=== PATIENT | male | born 1960 | race Caucasian/White ===

== ENCOUNTER 2022-04-05 02:36 | Emergency (ER) | payer OTHER, SELFPAY ==
--- NOTE | 2022-04-05 | ECG_ITS ---
Test Reason : DIZZINESS Blood Pressure : / mmHG Vent. Rate : 073 BPM Atrial Rate : 073 BPM P-R Int : 212 ms QRS Dur : 100 ms QT Int : 400 ms P-R-T Axes : 047 -18 026 degrees QTc Int : 440 ms Sinus rhythm with 1st degree A-V block Otherwise normal ECG No previous ECGs available Referred By: Generic ED Physician Electronically Signed By:SARA SIMMS MD
--- NOTE | ~2022-04-05 | CT_ITS ---
EXAMINATION: CT HEAD WITHOUT CONTRAST CLINICAL INFORMATION: Dizziness COMPARISON: None TECHNIQUE: Contiguous axial imaging was performed from the skull base to vertex without intravenous administration of contrast. This CT examination was performed using dose optimization techniques as appropriate, variously including the following: *Automated exposure control *Adjustment of mA and/or kV according to patient size (this includes techniques or standardized protocols for targeted exams where dose is matched to indication/reason for exam; i.e. extremities or head) *Use of iterative reconstruction technique DLP: 766 mGy-cm FINDINGS: There is no evidence of acute intracranial hemorrhage or territorial infarction. No abnormal mass effect or midline shift is seen. Butts to white matter differentiation is well preserved. No extra-axial fluid collections are identified. The ventricles are normal in size. There is no abnormal attenuation within the brain parenchyma. The osseous structures and soft tissues are normal. Scattered secretions throughout the ethmoid air cells. Remaining sinuses are clear. CT/CT head/brain wo con IMPRESSION: No acute intracranial pathology.
[2022-04-05 02:38] VITALS: BP 158/100; PULSE 92
[2022-04-05 02:43] VITALS: BP 180/88; PULSE 82; RESP 20; O2SAT 97; BMI 31.7
[2022-04-05 02:59] VITALS: BP 158/85; PULSE 67; RESP 14; TEMP 36.6; O2SAT 99
[2022-04-05 03:01] LABS: MANUAL DIFF FLAG NO
[2022-04-05 03:02] LABS: Basophils Percent Auto 0.4 % (0-2); Eosinophils Absolute Auto 0.3 X10*3/uL (0.0-0.4); Eosinophils Percent Auto 4.4 % (0-4); Hemoglobin 13.5 g/dl (14.0-18.0); Imm Gran Abs Auto 0.09 X10*3/uL (0.00-0.03); Imm Gran Pct Auto 1.3 % (0.0-0.4); Lymphocytes Absolute Auto 1.5 X10*3/uL (1.2-4.9); Lymphocytes Percent Auto 22.4 % (20-40); Mean Corpuscular HGB Conc 34.6 g/dl (31.0-36.0); Mean Corpuscular Hemoglobin 32.1 pg (27.0-33.0); Mean Corpuscular Volume 92.9 fL (80.0-98.0); Mean Platelet Volume 10.6 fL (9.4-12.4); Monocytes Absolute Auto 0.4 X10*3/uL (0.1-1.2); Monocytes Percent Auto 6.4 % (2-11); Neutrophils Absolute Auto 4.4 x10*3/uL (2.0-8.3); Neutrophils Percent Auto 65.1 % (45-73); Platelet Count 223 X10*3/uL (160-400); Red Cell Distribution Width 12.1 % (11.0-16.0); White Blood Count 6.8 X10*3/uL (4.8-10.8)
[2022-04-05 03:16] LABS: COVID-19 Test Negative (Negative)
[2022-04-05 03:21] LABS: Troponin-I High Sensitivity < 3.5 ng/L (<3.5-35.0)
[2022-04-05 03:23] LABS: Alanine Aminotransferase 30 U/L (0-40); Albumin Level 4.4 g/dL (3.5-5.0); Alkaline Phosphatase 72 U/L (39-117); Anion Gap 15 (12-20); Aspartate Amino Transferase 21 U/L (5-37); Bilirubin Direct 0.2 mg/dL (0.0-0.5); Bilirubin Total 0.6 mg/dL (0.0-1.0); Blood Urea Nitrogen 11 mg/dL (9-16); Calcium 9.3 mg/dL (8.4-10.2); Carbon Dioxide 27 mmol/L (22-29); Chloride 99 mmol/L (96-108); Creatinine Clr Calc Pharmacy 106.5; Estimated Glomerular Filt Rate > 60; Glucose Random 167 mg/dL (60-115); Lipase 18 U/L (8-78); Potassium 3.9 mmol/L (3.3-5.1); Sodium 137 mmol/L (135-145); Total Protein 7.2 g/dL (6.5-8.0)
--- NOTE | 2022-04-05 03:30 | ED_ITS ---
HPI - Dizziness General Chief Complaint: Dizziness Stated Complaint: nausea vomiting and dizziness Time Seen by Provider: 04/05/22 02:59 Source: patient and EMS Mode of arrival: EMS Limitations: no limitations History of Present Illness HPI Narrative: 61-year-old male came in for evaluation of dizziness and vomiting. symptoms started about 02:00 after patient got up from sleeping going to the bathroom when he felt dizziness and room spinning around him followed by feeling nauseous and his start to vomit, patient declined any headache, no weakness, no numbness, no ear pain, no hearing loss. Dizziness / spinning is worsening with changing position or quickly turning his head from side to side. Patient had similar symptoms about 2 years ago had negative workup and complete resolution of his dizziness until today. No fever, no chills, no recent sickness, no exposure to a sick contact. No CP, no SOB. Related Data Home Medications Medication Instructions Recorded Confirmed ibuprofen 200 mg tablet 400 mg PO Q8H 08/11/20 08/11/20 Previous Rx's Medication Instructions Recorded diclofenac sodium 75 mg 75 mg PO BID PRN for pain #60 tabs 02/25/21 tablet,delayed release Allergies Allergy/AdvReac Type Severity Reaction Status Date / Time Fish Containing Products Allergy Unknown ANGIOEDEMA Verified 04/05/22 02:44 Review of Systems Review of Systems: All other systems are reviewed and are negative Constitutional: Reports as per HPI and Reports no additional constitutional complaints Eyes: Reports as per HPI and Reports no additional eye complaints Reports system reviewed and no additional complaints, except as documented Cardiovascular: Reports as per HPI and Reports no additional cardiovascular complaints Respiratory: Reports as per HPI and Reports no additional respiratory complaints Gastrointestinal: Reports as per HPI and Reports no additional gastrointestinal complaints Genitourinary: Reports no additional female genitourinary complaints Musculoskeletal: Reports no additional musculoskeletal complaints Skin/Breast: Reports system reviewed and no additional complaints, except as docu Psychiatric: Reports no additional psychiatric complaints Endocrine: Reports no additional endocrine complaints Hematologic/Lymphatic: Reports no additional hematologic/lymphatic complaints Allergic/Immunologic: Reports no additional allergic/immunologic complaints Reports system reviewed and no additional complaints, except as documented and Reports Abnormal speech present [facility] Past Medical History Surgical History S/P arthroscopic surgery of left knee Family History Family History Father Cancer Mother No problems noted. Social History Social History Alcohol intake: current Alcohol intake frequency: a few times a month Alcohol type: beer Physical Exam Vital Signs: Vital Signs: Last Vital Signs Temp 96.9 F 04/05/22 05:14 Pulse 83 04/05/22 05:14 Resp 15 04/05/22 05:14 BP 162/79 H 04/05/22 05:14 Pulse Ox 99 04/05/22 05:14 O2 Del Method 04/05/22 05:14 BMI result Body Mass Index 31.7 vital signs have been reviewed as appeared to be correct. Blood pressure normal. Heart rate normal. Respiration rate normal. Temperature normal. Oxygen saturation normal. Appearance: Alert. Oriented X3. No acute distress. Head: Normal external exam. Normocephalic. Atraumatic. No Roth signs noted. No raccoon eyes noted Eyes: PERRLA. EOMI. Conjunctiva and sclera normal. Eyelids normal. ENT: TM's Normal. Pharynx normal. Uvula midline. Moist mucous membranes. No trismus noted. No drooling noted. No muffled voice noted. Neck: Normal inspection. Neck supple. FROM. No adenopathy. Thyroid Normal. No meningeal signs. No neck mass noted. CVS: Normal heart rate and rhythm. Heart sound normal. No murmurs noted. Pulses normal throughout. Respiratory: No respiratory distress. Painless inspiration. Breath sounds normal. No wheezes/rales/rhonchi noted. Chest nontender. No accessory muscle usage noted or decreased air movement noted. Abdomen: Soft and nontender. Bowel sounds normal in all 4 quadrants. No distention noted. No organomegaly noted. No visible injury noted. Back: No CVA tenderness. Full range of motion noted. Skin: Skin warm and dry. Normal skin color. Normal skin turgor. No rashes/lesions/lacerations noted. Extremities: No lower extremity edema. Extremities exhibit normal range of motion. Extremities nontender. Neuro: Oriented X 3. Cranial nerve exam: II-XII are grossly intact No motor deficit. No sensory deficit. Reflexes normal. NIH Stroke Scale Internal: Initial- Upon Arrival Level of Consciousness: Alert Level of Consciousness Questions: Answers both questions correctly Level of Consciousness Commands: Performs both tasks correctly Best Gaze: Normal Visual: No visual loss Facial Palsy: Normal Motor Arm (Right): No drift Motor Arm (Left): No drift Motor Leg (Right): No drift Motor Leg (Left): No drift Limb Ataxia: Absent Sensory: Normal Best Language: No aphasia Dysarthia: Normal Extinction and Inattention: No abnormality Score: 0 Course Course Course Narrative: 61-year-old male came in for dizziness with nausea and vomiting otherwise unremarkable neuro exam with NIH score of 0, significant improvement of patient's symptoms after received IV hydration and oral hydration with Zofran and meclizine. patient's repeat neuro exam is unremarkable, in particular c erebellar exam is intact able to ambulate with steady gait, no [id number] dysmetria. Will discharge the patient to follow-up with PCP. [facility] - Dizziness Lab Data Attestation: I reviewed the patient's lab results. Result diagrams: 04/05/22 02:57 04/05/22 02:57 Labs: Lab Results 04/05/22 04/05/22 04/05/22 Range/Units 02:52 02:57 02:57 WBC 6.8 (4.8-10.8) X10*3/uL RBC 4.20 L (4.60-5.80) X10*6/uL Hgb 13.5 L (14.0-18.0) g/dl Hct 39.0 L (42.0-52.0) % MCV 92.9 (80.0-98.0) fL MCH 32.1 (27.0-33.0) pg MCHC 34.6 (31.0-36.0) g/dl RDW 12.1 (11.0-16.0) % Plt Count 223 (160-400) X10*3/uL MPV 10.6 (9.4-12.4) fL Immature Gran % (Auto) 1.3 H (0.0-0.4) % Neut % (Auto) 65.1 (45-73) % Lymph % (Auto) 22.4 (20-40) % [place] % (Auto) 6.4 (2-11) % Eos % (Auto) 4.4 H (0-4) % Baso % (Auto) 0.4 (0-2) % Lymph # (Auto) 1.5 (1.2-4.9) X10*3/uL [place] # (Auto) 0.4 (0.1-1.2) X10*3/uL Eos # (Auto) 0.3 (0.0-0.4) X10*3/uL Baso # (Auto) 0.0 (0.0-0.2) X10*3/uL Abs Immat Gran (auto) 0.09 H (0.00-0.03) X10*3/uL Absolute Neuts (auto) 4.4 (2.0-8.3) x10*3/uL Absolute Nucleated RBC 0.000 (0.0-0.012) X10*3/uL Nucleated RBC % (auto) 0.0 (0.0-0.2) /100WBC Sodium 137 (135-145) mmol/L Potassium 3.9 (3.3-5.1) mmol/L Chloride 99 (96-108) mmol/L Carbon Dioxide 27 (22-29) mmol/L Anion Gap 15 (12-20) BUN 11 (9-16) mg/dL Creatinine 0.94 (0.5-1.4) mg/dL Estim Creat Clear Calc 106.5 Estimated GFR > 60 Random Glucose 167 H (60-115) mg/dL Calcium 9.3 (8.4-10.2) mg/dL Total Bilirubin 0.6 (0.0-1.0) mg/dL Direct Bilirubin 0.2 (0.0-0.5) mg/dL AST 21 (5-37) U/L ALT 30 (0-40) U/L Alkaline Phosphatase 72 (39-117) U/L Troponin I High Sens (<3.5-35.0) ng/L Total Protein 7.2 (6.5-8.0) g/dL Albumin 4.4 (3.5-5.0) g/dL Lipase 18 (8-78) U/L Urine Color Urine Appearance Urine pH (5.0-8.0) Ur Specific [place] (1.005-1.025) Urine Protein (NEG-TRACE) MG/DL Urine Glucose (UA) (NEG) MG/DL Urine Ketones (NEG) MG/DL Urine Blood (NEG) Urine Nitrite (NEG) Ur Leukocyte Esterase (NEG) COVID-19 ([facility]) Negative (Negative) COVID-19 Clin Com See Note 04/05/22 04/05/22 Range/Units 02:57 05:44 WBC (4.8-10.8) X10*3/uL RBC (4.60-5.80) X10*6/uL Hgb (14.0-18.0) g/dl Hct (42.0-52.0) % MCV (80.0-98.0) fL MCH (27.0-33.0) pg MCHC (31.0-36.0) g/dl RDW (11.0-16.0) % Plt Count (160-400) X10*3/uL MPV (9.4-12.4) fL Immature Gran % (Auto) (0.0-0.4) % Neut % (Auto) (45-73) % Lymph % (Auto) (20-40) % [place] % (Auto) (2-11) % Eos % (Auto) (0-4) % Baso % (Auto) (0-2) % Lymph # (Auto) (1.2-4.9) X10*3/uL [place] # (Auto) (0.1-1.2) X10*3/uL Eos # (Auto) (0.0-0.4) X10*3/uL Baso # (Auto) (0.0-0.2) X10*3/uL Abs Immat Gran (auto) (0.00-0.03) X10*3/uL Absolute Neuts (auto) (2.0-8.3) x10*3/uL Absolute Nucleated RBC (0.0-0.012) X10*3/uL Nucleated RBC % (auto) (0.0-0.2) /100WBC Sodium (135-145) mmol/L Potassium (3.3-5.1) mmol/L Chloride (96-108) mmol/L Carbon Dioxide (22-29) mmol/L Anion Gap (12-20) BUN (9-16) mg/dL Creatinine (0.5-1.4) mg/dL Estim Creat Clear Calc Estimated GFR Random Glucose (60-115) mg/dL Calcium (8.4-10.2) mg/dL Total Bilirubin (0.0-1.0) mg/dL Direct Bilirubin (0.0-0.5) mg/dL AST (5-37) U/L ALT (0-40) U/L Alkaline Phosphatase (39-117) U/L Troponin I High Sens < 3.5 (<3.5-35.0) ng/L Total Protein (6.5-8.0) g/dL Albumin (3.5-5.0) g/dL Lipase (8-78) U/L Urine Color YELLOW Urine Appearance CLEAR Urine pH 7.0 (5.0-8.0) Ur Specific [place] 1.015 (1.005-1.025) Urine Protein NEG (NEG-TRACE) MG/DL Urine Glucose (UA) NEG (NEG) MG/DL Urine Ketones NEG (NEG) MG/DL Urine Blood NEG (NEG) Urine Nitrite NEG (NEG) Ur Leukocyte Esterase NEG (NEG) COVID-19 ([facility]) (Negative) COVID-19 Clin Com Imaging Data CT scan - head: Attestation: I personally reviewed and interpreted this imaging study as follows: Radiologist's impression: No acute intracranial pathology. Discharge Plan Discharge Clinical Impression: Benign paroxysmal positional vertigo Patient Disposition: Home, Self-Care Instructions: Benign Paroxysmal Positional Vertigo (ED) Prescriptions: No Action diclofenac sodium 75 mg tablet,delayed release (DR/EC) 75 mg PO BID PRN (Reason: for pain) Qty: 60 2RF ibuprofen 200 mg tablet 400 mg PO Q8H Referrals: Po,Osmani Vizcaino MD [Primary Care Provider] -
[2022-04-05] MEDS: Meclizine HCl 25 MG TABLET PO (03:48)
[2022-04-05] MEDS: ondansetron HCL 4 MG/2 ML VIAL IVPUSH (03:48)
[2022-04-05] MEDS: 0.9 % Sodium Chloride 1,000 ML 999 ML IV (03:48)
[2022-04-05 03:54] VITALS: BP 163/87; PULSE 68; RESP 16; TEMP 36.7; O2SAT 97
[2022-04-05 05:14] VITALS: BP 162/79; PULSE 83; RESP 15; TEMP 36.1; O2SAT 99
[2022-04-05 05:58] LABS: Appearance Urine CLEAR; Color Urine YELLOW; Glucose Urine UA NEG (NEG); Leukocyte Esterase Urine NEG (NEG); Nitrite Urine NEG (NEG); Specific Gravity - Urine 1.015 (1.005-1.025); Urine Blood NEG (NEG); Urine Ketones NEG (NEG); Urine Protein NEG (NEG-TRACE)
[2022-04-05 06:40] VITALS: BP 141/74; PULSE 75; RESP 14; TEMP 36.3; O2SAT 98
== END 2022-04-05 06:52 | disposition home or self-care (01) ==
PROVIDERS: Emergency Provider Emergency Medicine; PCP Internal Medicine
DX: H81.10 Benign paroxysmal vertigo, unspecified ear (principal); R11.2 Nausea with vomiting, unspecified; Z20.822 Contact with and (suspected) exposure to COVID-19; Z79.899 Other long term (current) drug therapy
CPT/HCPCS: 36415; 70450; 80048; 80076; 81003; 83690; 84484; 85025; 87635; 93005; 96361; 96374; 99284; 99285; J2405

== ENCOUNTER 2022-06-22 05:58 | Outpatient (REF) | payer OTHER, SELFPAY ==
[2022-06-22 07:33] LABS: Hematocrit 42.3 % (42.0-52.0); Hemoglobin 13.9 g/dl (14.0-18.0); Mean Corpuscular HGB Conc 32.9 g/dl (31.0-36.0); Mean Corpuscular Hemoglobin 30.9 pg (27.0-33.0); Mean Platelet Volume 11.7 fL (9.4-12.4); Platelet Count 192 X10*3/uL (160-400); Red Cell Distribution Width 12.4 % (11.0-16.0); White Blood Count 5.2 X10*3/uL (4.8-10.8)
[2022-06-22 07:50] LABS: Estimated Average Glucose 111 mg/dL; Hemoglobin A1c % 5.5 %
[2022-06-22 07:58] LABS: Appearance Urine Clear; Color Urine Yellow; Glucose Urine UA Negative (Negative); Leukocyte Esterase Urine Negative (Negative); Nitrite Urine Negative (Negative); Urine Blood Negative (Negative); Urine Ketones Negative (Negative); Urine Protein Negative (Neg-Trace)
[2022-06-22 08:02] LABS: Alanine Aminotransferase 30 U/L (0-40); Albumin Level 4.5 g/dL (3.5-5.0); Alkaline Phosphatase 73 U/L (39-117); Anion Gap 16 (12-20); Aspartate Amino Transferase 21 U/L (5-37); Bilirubin Direct 0.4 mg/dL (0.0-0.5); Bilirubin Total 1.3 mg/dL (0.0-1.0); Blood Urea Nitrogen 13 mg/dL (9-16); C Reactive Protein 0.06 mg/dL (< or = 0.50); Calcium 9.7 mg/dL (8.4-10.2); Carbon Dioxide 28 mmol/L (22-29); Chloride 103 mmol/L (96-108); Cholesterol 211 mg/dL; Estimated Glomerular Filt Rate > 60; Glucose Random 112 mg/dL (60-115); HDL Cholesterol 53 mg/dL; LDL Cholesterol Calculated 146 mg/dl; Potassium 4.7 mmol/L (3.3-5.1); Sodium 142 mmol/L (135-145); Total Protein 7.1 g/dL (6.5-8.0); Triglycerides 63 mg/dL
[2022-06-22 08:26] LABS: Prostate Specific Antigen Scr 0.42 ng/mL (<0.05-4.0); Thyroid Stimulating Hormone 0.77 uIU/mL (0.32-4.0)
[2022-06-22 08:46] LABS: Erythrocyte Sedimentation Rate 7 MM/HR (0-15)
[2022-06-24 05:46] LABS: Lyme Abs Screen <0.90 index
== END 2022-06-22 05:59 | disposition home or self-care (01) ==
LOC: HO.LAB 05:58
PROVIDERS: PCP Internal Medicine; Visit Provider Internal Medicine
DX: M79.10 Myalgia, unspecified site (principal); Z12.5 Encounter for screening for malignant neoplasm of prostate
CPT/HCPCS: 36415; 80048; 80061; 80076; 81003; 82550; 83036; 84153; 84443; 85027; 85652; 86140; 86617; 86618

== ENCOUNTER 2023-03-15 07:19 | Outpatient (AMB) | payer OTHER, SELFPAY ==
[2023-03-15 07:26] VITALS: BP 140/82; PULSE 78; O2SAT 97; BMI 34.7
--- NOTE | 2023-03-15 07:26 | A.OFFPC_ITS ---
Vital Signs 03/15/23 07:26 Height 6 ft Weight 256 lb BMI 34.7 BP 140/82 H Blood Pressure Location Lt brachial Position Sitting Pulse 78 Pulse Source Pulse Oximeter Pulse Oximetry (%) 97 Oxygen Delivery Method Room Air Intake Visit Reasons: Annual PE Allergies No Known Allergies Allergy (Verified 03/15/23 07:26) Tobacco use date assessed: 11/10/22 Dental Screening Dental Screen Date: 03/15/23 Did you have a dental visit in the last 12 months?: No Did you have a dental problem in the last 6 months where you did not have access to dental care?: No Was dental information given to patient?: Patient has dentist HPI HPI Comments History of Present Illness Details 62-year-old male past medical history significant for osteoarthritis of left knee and myalgias. Patient last seen in November presents today for physical exam. Patient s/p bilateral knee replacements RT knee done 12/31/22. Patient bloodpresure elevated in office today. Patient states monitors b/p at home and typically runs 130/70. Colonoscopy: Unsure when last colonoscopy was completed or where he had it done, likely 10 years ago. Referral entered for colonoscopy screening. Eye exam: Recommended PSA: 0.42 06[facility] Surgical History History of knee replacement S/P arthroscopic surgery of left knee Family History Father Cancer Mother No problems noted. Social History (Updated 03/15/23 @ 07:38 by PACHECO Bee) Housing: House Alcohol intake: current Alcohol intake frequency: a few times a week Alcohol type: beer Patient Tobacco Use Status: Never used Tobacco e-Cigarette/Vaping Use: Never Used Second Hand Smoke Exposure: No service: No Current occupational status: employed Current occupation: [employer] Cognitive needs: No Hearing needs: No Vision needs: No Questionnaire PHQ-9 Over the last 2 weeks, how often have you been bothered by any of the following problems? 1. Little interest or pleasure in doing things: not at all 2. Feeling down, depressed, or hopeless: not at all 3. Trouble falling or staying asleep, or sleeping too much: not at all 4. Feeling tired or having little energy: not at all 5. Poor appetite or overeating: not at all 6. Feeling bad about yourself - or that you are a failure or have let yourself or your family down: not at all 7. Trouble concentrating on things, such as reading the newspaper or watching t elevision: not at all 8. Moving or speaking so slowly that other people could have noticed. Or the opposite - being so fidgety or restless that you have been moving around a lot more than usual: not at all 9. Thoughts that you would be better off or of hurting yourself in some way: not at all Total score: 0 Depression Screening Interpretation: Negative 15795 - PHQ-9 Billing: Yes Source: Developed by Drs. Willis Coelho, Regine Mcqueen, Marcin Kimbrough and colleagues, with an educational denita from [employer]. Thrive Questionnaire Date Thrive assessed: 11/10/22 AUDIT C Alcohol Use Questionnaire (AUDIT-C) 1. How often do you have a drink containing alcohol?: Monthly or less 2. How many drinks containing alcohol do you have on a typical day when you are drinking?: 1 or 2 Total Score: 1 Score Reviewed/Action Taken: No LORETO-7 AMB Questionnaire LORETO-7 Date LORETO - 7 assessed: 11/10/22 Source: Developed by Drs. Willis Coelho, Regine Mcqueen, Marcin Kimbrough and colleagues, with an educational denita from [employer]. Review of Systems Const Denies chills, Denies fatigue, Denies fever(s) and Denies poor appetite Eyes Denies no additional complaints ENT Reports Normal hearing present Card Denies chest pain, Denies syncope, Denies rapid heart rate and Denies dyspnea Resp Denies cough and Denies dyspnea GI Denies change in stool character, Denies constipation, Denies diarrhea, Denies nausea and Denies vomiting Denies dysuria, Denies urinary frequency and Denies urinary urgency Neuro Reports Normal hearing present, Denies confusion and Denies syncope Psych Denies confusion Endo Denies fatigue Physical exam (Primary Care) Vital Signs: Last Vital Signs Pulse 78 03/15/23 07:26 BP 140/82 H 03/15/23 07:26 Pulse Ox 97 03/15/23 07:26 Oxygen Delivery Method Room Air 03/15/23 07:26 BMI result Body Mass Index 34.7 Tobacco/Smoking Status: Tobacco use Status Tobacco use date assessed 11/10/22 03/15/23 07:31 Patient Tobacco Use Status Never used Tobacco 03/15/23 07:31 e-Cigarette/Vaping Use Never Used 03/15/23 07:31 PHQ-9: PHQ-9 Score PHQ-9: Total score 0 03/15/23 07:31 Depression Screening Interpretation: Negative Thrive Assessment: Date of Thrive Assessment Date Thrive assessed 11/10/22 03/15/23 07:31 Const General: No confusion Orientation/consciousness: No confusion HENMT Head: Yes normocephalic and Yes atraumatic Ears: external ears normal and TM's normal bilaterally General nose exam: Normal external nose present and Normal nasal mucous membranes and turbinates present Face and sinus: Yes normal facial exam and Yes sinuses nontender Mouth: moist mucous membranes Throat: Yes tonsils normal Eyes Conjunctivae: conjunctivae normal Sclerae: sclerae normal Pupils: Equal, round and reactive pupils present and Pupils normal by confrontation EOM: EOMs intact bilaterally Direct Ophthalmoscopy: normal light reflex Neck Neck: Yes no lymphadenopathy and Yes supple Thyroid: Thyroid normal Chest Chest palpation & inspection: normal inspection of the chest Resp Effort & Inspection: normal respiratory effort Auscultation: clear to auscultation bilaterally, no crackles, no rhonchi and no wheezes Cardio Rate: regular rate Rhythm: regular rhythm Peripheral pulses: radial pulses present and dorsalis pedis present GI Inspection: Yes normal to inspection Palpation (GI): Soft to palpation, nontender and No hepatosplenomegaly present Auscultation: normoactive bowel sounds Skin General skin exam: no rashes or lesions noted Neuro General: No confusion Cranial nerves: Yes Equal, round and reactive pupils present and Yes Normal hearing present Cognition (Neuro): normal cognition Gait exam (Neuro): Normal gait present Motor exam (neuro): 5/5 motor strength present throughout Deep tendon reflexes (DTR's): Right brachioradialis reflex intensity grade: 2+ and Left brachioradialis reflex intensity grade: 2+ Extrem General: No edema Assessment and Plan Assessment & Plan (1) Physical exam, annual: Code(s): Z00.00 - Encounter for general adult medical examination without abnormal fin dings Plan: Follow up in 1 year for physical exam (2) Borderline hyperlipidemia: Code(s): E78.5 - Hyperlipidemia, unspecified Plan: Fasting lipid panel ordered. Avoid fried foods, chicken skin, eggs, butter,margarine, pastries and? red meat. (3) Elevated blood pressure reading in office without diagnosis of hypertension: Code(s): R03.0 - Elevated blood-pressure reading, without diagnosis of hypertension Plan: Patient advised to follow low salt diet and excercise. Patient advised to check blood pressure at home a doctor soon 3-5 minutes and keep a log and notify PCP with any elevated blood pressures. Plan Follow up in 3 months Orders: Orders Comprehensive [place]. Panel Fast Today E78.5 - Hyperlipidemia, unspecified Lipid Panel Today Z13.220 - Encounter for screening for lipoid disorders PSA,Total (Free>4and<10) Today Z12.5 - Encounter for screening for malignant neoplasm of prostate TSH reflex Free T4 Today Z13.29 - Encounter for screening for other suspected endocrine disorder Complete Blood Count Auto Diff Today Z13.0 - Encounter for screening for diseases of the blood and blood-forming organs and certain disorders involving the immune mechanism Referrals Gastroenterology Referral Z12.11 - Encounter for screening for malignant neoplasm of colon Coding Level of Care Code Est Pt Prev Care 40-64y(55439) Diagnoses Physical exam, annual Z00.00 Borderline hyperlipidemia E78.5 Elevated blood pressure reading in office without diagnosis of hypertension R03.0
== END 2023-03-15 07:57 | disposition home or self-care (01) ==
PROVIDERS: PCP Internal Medicine; Visit Provider Nurse Practitioner Family
DX: Z00.00 Encounter for general adult medical examination without abnormal findings (principal); E78.5 Hyperlipidemia, unspecified; R03.0 Elevated blood-pressure reading, without diagnosis of hypertension
CPT/HCPCS: 99396

== ENCOUNTER 2023-06-26 13:56 | Outpatient (AMB) | payer OTHER, SELFPAY ==
--- NOTE | 2023-06-26 14:01 | A.OFFVIS_ITS ---
Intake Vital Signs 06/26/23 14:15 Height 6 ft Weight 262 lb 5.601 oz BMI 35.6 BP 163/87 H Blood Pressure Location Rt brachial Position Sitting Pulse 98 Pulse Source Pulse Oximeter Pulse Oximetry (%) 98 Oxygen Delivery Method Room Air Intake Visit Reasons: Colonoscopy Screening Intake Note: Pt presents to the office today for a colonoscopy screening. Pt states he has no concerns at the moment and denies any GI upsets. Allergies No Known Allergies Allergy (Verified 07/02/23 09:38) HPI Colonoscopy Screening HPI Details 62 y/o male here for a pre procedureal m eeting to discuss a screening colonoscopy. He is referred by Rosalina Marie of [facility]. PMX Elevated blood pressure reading High cholesterol Myalgias - resolved after knee surgery Osteoarthritis of the left knee * SURGICAL HISTORY Bilateral total knee replacements Arthroscopic surgery left knee * ALLERGIES: NKDA * Replicon LABS: no recent labs - fasting ordered by PCP He says he had bloodwork at [facility] recently. TODAY'S VISIT He had a prior colonoscopy over 10 years ago that he remembers as negative. He denies any bowel or upper GI problems. There are no prior problems with anesthesia or sedation. He denies any cardiac or respiratory problems. No ID problems. There is no known FHX of crc or polyps. [facility] Surgical History History of knee replacement S/P arthroscopic surgery of left knee Family History Father Cancer Mother No problems noted. Social History Housing: House Alcohol intake: current Alcohol intake frequency: a few times a week Alcohol type: beer Patient Tobacco Use Status: Never used Tobacco e-Cigarette/Vaping Use: Never Used Second Hand Smoke Exposure: No service: No Current occupational status: employed Current occupation: [employer] Cognitive needs: No Hearing needs: No Vision needs: No Review of Systems Const Denies fatigue, Denies fever(s), Denies night sweats, Denies poor appetite and Denies weight loss ENT Reports Normal hearing present, Denies dental pain, Denies dysphagia, Denies hearing loss, Denies mouth pain, Denies odynophagia, Denies throat swelling, Denies tongue swelling and Reports other (Dentition adequate) Card Reports no additional complaints Resp Reports no additional complaints GI Denies abdominal pain, Denies melena, Denies bloating, Denies hematochezia, Denies constipation, Denies GI cramping, Denies dysphagia, Denies excessive fl atus, Denies early satiety, Denies heartburn, Denies diarrhea, Denies nausea, Denies odynophagia, Denies vomiting and Denies hematemesis Skin/Breast Denies pruritus, Denies lesions, Denies rash and Denies jaundice Neuro Reports Normal hearing present and Denies Abnormal speech present Endo Denies fatigue Aller/Immun Denies throat swelling and Denies tongue swelling Physical Exam Vital Signs: Last Vital Signs Pulse 98 06/26/23 14:15 BP 163/87 H 06/26/23 14:15 Pulse Ox 98 06/26/23 14:15 Oxygen Delivery Method Room Air 06/26/23 14:15 BMI result Body Mass Index 35.6 Const General: cooperative, no acute distress, well developed and well groomed Nutritional Appearance: well nourished and obese centrally obese Orientation/consciousness: oriented to person, oriented to place and oriented to time Limitations: No language barrier HEENT Head: Yes normocephalic and Yes atraumatic Eyes General: appearance normal, both eyes and all related structures Pupils: Equal, round and reactive pupils present Neck Neck: Yes normal visual inspection and Yes no lymphadenopathy Thyroid: Thyroid normal Resp Effort & Inspection: normal respiratory effort and able to speak in complete sentences Auscultation: clear to auscultation bilaterally Cardio Rate: regular rate Rhythm: regular rhythm Heart sounds: Normal, physiologic split S2 sound present Peripheral pulses: radial pulses present and posterior tibial pulses present GI Inspection: No distended, No Abdominal panniculus present and Yes obesity Palpation (GI): Soft to palpation, nontender, no guarding, not rigid and No hepatosplenomegaly present Percussion: Yes normal to percussion Auscultation: normal bowel sounds Rectal Exam - Male: Yes deferred Skin General skin exam: no rashes or lesions noted, turgor normal, skin not dry, no jaundice, No spider nevi and no striae Rashes: no rashes Nails: normal Neuro General: oriented to person, oriented to place and oriented to time Cranial nerves: Yes Equal, round and reactive pupils present and Yes Normal hearing present Speech: No Abnormal speech present Extrem General: Yes normal to inspection, No clubbing, No cyanosis and No edema Psych Appearance: grossly normal and well kempt Mental Status: mental status grossly normal Speech and movement: Normal speech and movement present Affect: normal affect Attitude: cooperative Thought process: Normal thought process present and not confabulating Thought content: Normal thought content present Insight: Fair insight present (Psych) Judgement: Fair judgement present (Psych) Assessment & Plan Assessment & Plan (1) Pre-op examination: Code(s): Z01.818 - Encounter for other preprocedural examination Plan: He had a prior colonoscopy over 10 years ago that he remembers as negative. He denies any bowel or upper GI problems. There are no prior problems with anesthesia or sedation. He denies any cardiac or respiratory problems. No ID problems. There is no known FHX of crc or polyps. Orders: Orders Colonoscopy - GI Use Only 06/26/23 Medications: New peg 3350-electrolytes 236-22.74-6.74 -5.86 gram (Golytely) until fecal effluent is clear; do not exceed a total volume of 2,000 mL 240 mL PO Q10M 4,000 mL 0RF 1 day Z12.11 - Encounter for screening for malignant neoplasm of colon Coding Level of Care Code New Pt Level 3 (54810) Diagnoses Pre-op examination Z01.818
[2023-06-26 14:15] VITALS: BP 163/87; PULSE 98; O2SAT 98; BMI 35.6
== END 2023-06-26 14:54 | disposition home or self-care (01) ==
PROVIDERS: PCP Internal Medicine; Visit Provider Nurse Practitioner
DX: Z01.818 Encounter for other preprocedural examination (principal)
CPT/HCPCS: 99203

== ENCOUNTER → 2023-06-26 13:56 | Outpatient (BNVA) | payer OTHER, SELFPAY | PROVIDERS: PCP Internal Medicine; Visit Provider Nurse Practitioner ==

== ENCOUNTER 2023-07-02 09:30 | Outpatient (AMB) | payer OTHER, SELFPAY ==
[2023-07-02 09:37] VITALS: BP 142/84; PULSE 84; O2SAT 96; BMI 35.4
--- NOTE | 2023-07-02 09:37 | A.OFFPC_ITS ---
Vital Signs 07/02/23 09:37 Height 6 ft Weight 261 lb BMI 35.4 BP 142/84 H Blood Pressure Location Lt brachial Position Sitting Pulse 84 Pulse Source Pulse Oximeter Pulse Oximetry (%) 96 Oxygen Delivery Method Room Air Intake Visit Reasons: Elevated B/p Allergies No Known Allergies Allergy (Verified 07/02/23 09:38) Tobacco use date assessed: 07/02/23 Dental Screening Dental Screen Date: 07/02/23 Did you have a dental visit in the last 12 months?: Yes Did you have a dental problem in the last 6 months where you did not have access to dental care?: No Was dental information given to patient?: Patient has dentist HPI Elevated B/p HPI Details 62-year-old obese male with hypercholest erolemia seen for physical in March 2023. Noted to have an elevated blood pressure. Patient has met with senior informatica etl developer for preop for colonoscopy.. Review of the notes since last year the blood pressure in the office has been high [facility] Surgical History History of knee replacement S/P arthroscopic surgery of left knee Family History Father Cancer Mother No problems noted. Social History Housing: House Alcohol intake: current Alcohol intake frequency: a few times a week Alcohol type: beer Patient Tobacco Use Status: Never used Tobacco e-Cigarette/Vaping Use: Never Used Second Hand Smoke Exposure: No service: No Current occupational status: employed Current occupation: [employer] Cognitive needs: No Hearing needs: No Vision needs: No Questionnaire Thrive Questionnaire Date Thrive assessed: 11/10/22 LORETO-7 AMB Questionnaire LORETO-7 Date LORETO - 7 assessed: 11/10/22 Source: Developed by Drs. Willis Coelho, Regine Mcqueen, Marcin Kimbrough and colleagues, with an educational denita from [employer]. Physical exam (Primary Care) Vital Signs: Last Vital Signs Pulse 84 07/02/23 09:37 BP 142/84 H 07/02/23 09:37 Pulse Ox 96 07/02/23 09:37 Oxygen Delivery Method Room Air 07/02/23 09:37 BMI result Body Mass Index 35.4 Tobacco/Smoking Status: Tobacco use Status Tobacco use date assessed 07/02/23 07/02/23 09:40 Patient Tobacco Use Status Never used Tobacco 07/02/23 09:38 e-Cigarette/Vaping Use Never Used 07/02/23 09:38 Thrive Assessment: Date of Thrive Assessment Date Thrive assessed 11/10/22 07/02/23 09:38 Const General: alert; No acute distress Eyes Conjunctivae: conjunctivae normal Resp Auscultation: clear to auscultation bilaterally Cardio Rate: regular rate Rhythm: regular rhythm GI Inspection: Yes normal to inspection Extrem General: Yes normal to inspection and No edema Office Procedures Flu Questionnaire Does the patient have a severe egg allergy?: No Does the patient have severe life threatening allergies?: No Does the patient have a fever or illness today?: No Has the patient ever had Guillain-Chambers Syndrome?: No Has the patient ever had any past reaction to a flu shot?: No Immunizations flu vacc [id number] 6mos up(PF) 60 mcg(15 mcgx4)/0.5 mL IM syringe Performing Provider: Osmani Gutierrez MD Performing Location: [facility] Administered by: UCHE Norton on 07/02/23 09:43 Dose Route Admin Location Dispensed Lot Number Expiration Date NDC Personal Lines Account Executive 0.5 mL IM Left Deltoid 0.5 mL [id number] 03/02/24 [id number] [employer] VIS Given Date VIS Provided VIS Publication Date 07/02/23 Single Vaccine 21 Eligibility Eligibility Date Funding Source Not [facility] Eligible 07/02/23 Private Assessment and Plan Assessment & Plan (1) Colon cancer screening: Code(s): Z12.11 - Encounter for screening for malignant neoplasm of colon Plan: Patient has met with the senior informatica etl developer and will be scheduled (2) Elevated blood pressure reading in office without diagnosis of hypertension: Code(s): R03.0 - Elevated blood-pressure reading, without diagnosis of hypertension Plan: Concern about the blood pressure being elevated. The patient that the blood pressure here in the office has been 140 systolic blood pressure (3) Borderline hyperlipidemia: Code(s): E78.5 - Hyperlipidemia, unspecified Plan: Avoid fried foods, chicken skin, eggs, butter margarine, pastries and meat. Be it pork or beef they have a lot of cholesterol LDL goal of less than 130 and triglyceride of less than 150 (4) Impaired glucose tolerance: Code(s): R73.02 - Impaired glucose tolerance (oral) Plan: Decrease the amount of carbohydrate intake, pasta, bread, rice and potatoes are all sugar and that is aside from all the sweet stuff, remember that fruits are good but they are Sweet also. (5) Hypertension: Code(s): I10 - Essential (primary) hypertension Plan: Continue with blood pressure medication. Decrease salt intake and exercise. Hydrochlorothiazide prescribed Orders: Orders Comprehensive [place]. Panel Fast Today E78.5 - Hyperlipidemia, unspecified TSH reflex Free T4 Today Z13.29 - Encounter for screening for other suspected endocrine disorder Vitamin B12 and Folate Today M79.10 - Myalgia, unspecified site Influenza [id number] Immunization Today Z23 - Encounter for immunization Complete Blood Count Auto Diff Today Z13.0 - Encounter for screening for diseases of the blood and blood-forming organs and certain disorders involving the immune mechanism Lipid Panel Today Z13.220 - Encounter for screening for lipoid disorders PSA,Total (Free>4and<10) Today Z12.5 - Encounter for screening for malignant neoplasm of prostate Hemoglobin A1c Today R73.02 - Impaired glucose tolerance (oral) Medications: New hydrochlorothiazide 12.5 mg PO QAM 30 tabs 5RF I10 - Essential (primary) hypertension Coding Level of Care Code Est Pt Level 4 (82955) Diagnoses Colon cancer screening Z12.11 Elevated blood pressure reading in office without diagnosis of hypertension R03.0 Borderline hyperlipidemia E78.5 Impaired glucose tolerance R73.02 Hypertension I10
== END 2023-07-02 10:11 | disposition home or self-care (01) ==
PROVIDERS: PCP Internal Medicine; Visit Provider Internal Medicine
DX: Z12.11 Encounter for screening for malignant neoplasm of colon (principal); R03.0 Elevated blood-pressure reading, without diagnosis of hypertension; E78.5 Hyperlipidemia, unspecified; R73.02 Impaired glucose tolerance (oral); I10 Essential (primary) hypertension; Z23 Encounter for immunization
CPT/HCPCS: 90471; 90686; 99214

== ENCOUNTER 2023-09-05 06:00 | Outpatient (REF) | payer OTHER, SELFPAY ==
[2023-09-05 06:15] LABS: MANUAL DIFF FLAG NO
[2023-09-05 07:55] LABS: Basophils Percent Auto 0.7 % (0-2); Eosinophils Absolute Auto 0.3 X10*3/uL (0.0-0.4); Eosinophils Percent Auto 4.5 % (0-4); Hematocrit 43.7 % (42.0-52.0); Hemoglobin 14.8 g/dl (14.0-18.0); Imm Gran Abs Auto 0.04 X10*3/uL (0.00-0.03); Imm Gran Pct Auto 0.7 % (0.0-0.4); Lymphocytes Absolute Auto 1.5 X10*3/uL (1.2-4.9); Lymphocytes Percent Auto 25.4 % (20-40); Mean Corpuscular HGB Conc 33.9 g/dl (31.0-36.0); Mean Corpuscular Hemoglobin 31.3 pg (27.0-33.0); Mean Corpuscular Volume 92.4 fL (80.0-98.0); Mean Platelet Volume 11.4 fL (9.4-12.4); Monocytes Absolute Auto 0.5 X10*3/uL (0.1-1.2); Monocytes Percent Auto 8.8 % (2-11); Neutrophils Absolute Auto 3.6 x10*3/uL (2.0-8.3); Neutrophils Percent Auto 59.9 % (45-73); Platelet Count 187 X10*3/uL (160-400); Red Blood Count 4.73 X10*6/uL (4.60-5.80); Red Cell Distribution Width 12.6 % (11.0-16.0)
[2023-09-05 08:06] LABS: Estimated Average Glucose 117 mg/dL; Hemoglobin A1c % 5.7 % (<6.0)
[2023-09-05 08:13] LABS: Alanine Aminotransferase 24 U/L (0-40); Albumin Level 4.4 g/dL (3.5-5.0); Alkaline Phosphatase 75 U/L (39-117); Anion Gap 12 (12-20); Aspartate Amino Transferase 21 U/L (5-37); Blood Urea Nitrogen 17 mg/dL (9-16); Calcium 9.3 mg/dL (8.4-10.2); Carbon Dioxide 28 mmol/L (22-29); Chloride 102 mmol/L (96-108); Cholesterol 217 mg/dL (<200); Estimated Glomerular Filt Rate > 60; Glucose Fasting 118 mg/dL (60-99); HDL Cholesterol 65 mg/dL (>40); LDL Cholesterol Calculated 124 mg/dL (<100); Potassium 3.9 mmol/L (3.3-5.1); Sodium 138 mmol/L (135-145); Total Protein 7.5 g/dL (6.5-8.0); Triglycerides 143 mg/dL (<150)
[2023-09-05 08:23] LABS: PSA,Total (Free>4and<10) 0.93 ng/mL (0.00-4.00)
[2023-09-05 08:28] LABS: TSH reflex Free T4 1.98 uIU/mL (0.32-4.0); Vitamin D 25-OH Total 30.4 ng/mL (>30)
[2023-09-05 08:36] LABS: Folate 11.2 ng/mL (> or = 4.0); Vitamin B12 506 pg/mL (200-900)
== END 2023-09-05 06:01 | disposition home or self-care (01) ==
LOC: HO.LAB 06:00
PROVIDERS: Nurse Practitioner Family; PCP Internal Medicine; Visit Provider Internal Medicine
DX: Z12.5 Encounter for screening for malignant neoplasm of prostate (principal); Z13.220 Encounter for screening for lipoid disorders; Z13.0 Encounter for screening for diseases of the blood and blood-forming organs and certain disorders involving the immune mechanism; Z13.29 Encounter for screening for other suspected endocrine disorder; E78.5 Hyperlipidemia, unspecified; M79.10 Myalgia, unspecified site; R73.02 Impaired glucose tolerance (oral)
CPT/HCPCS: 36415; 80053; 80061; 82306; 82607; 82746; 83036; 84153; 84443; 85025

== ENCOUNTER 2023-09-14 11:02 | Outpatient (AMB) | payer OTHER, SELFPAY ==
[2023-09-14 11:13] VITALS: BP 136/72; PULSE 81; O2SAT 98; BMI 35.7
--- NOTE | 2023-09-14 11:13 | MHC.PC.OV ---
Vital Signs 09/14/23 11:13 Height 6 ft Weight 263 lb BMI 35.7 BP 136/72 Blood Pressure Location Lt brachial Position Sitting Pulse 81 Pulse Source Pulse Oximeter Pulse Oximetry (%) 98 Oxygen Delivery Method Room Air Intake Visit Reasons: Hypertension Analysis Director: Not Required per policy Accompanied by: Self / Same As Patient Allergies No Known Allergies Allergy (Verified 09/14/23 11:14) Tobacco use date assessed: 09/14/23 Dental Screening Dental Screen Date: 09/14/23 Did you have a dental visit in the last 12 months?: No Did you have a dental problem in the last 6 months where you did not have access to dental care?: No Was dental information given to patient?: Patient has dentist HPI Hypertension HPI Details 62-year-old obese male with a history of hypercholesterolemia impaired glucose tolerance and hypertension last seen in June 2023. Patient is here for follow-up patient is due for colonoscopy and has a schedule in October. Blood work done [facility] Medical History (Updated 09/14/23 @ 11:42 by Osmani Gutierrez MD) Elevated blood pressure reading in office without diagnosis of hypertension Borderline hyperlipidemia Surgical History History of knee replacement S/P arthroscopic surgery of left knee Family History Father Cancer Mother No problems noted. Social History Housing: House Alcohol intake: current Alcohol intake frequency: a few times a week Alcohol type: beer Patient Tobacco Use Status: Never used Tobacco e-Cigarette/Vaping Use: Never Used Second Hand Smoke Exposure: No service: No Current occupational status: employed Current occupation: [employer] Cognitive needs: No Hearing needs: No Vision needs: No Questionnaire PHQ-9 Over the last 2 weeks, how often have you been bothered by any of the following problems? 1. Little interest or pleasure in doing things: not at all 2. Feeling down, depressed, or hopeless: not at all 3. Trouble falling or staying asleep, or sleeping too much: not at all 4. Feeling tired or having little energy: not at all 5. Poor appetite or overeating: not at all 6. Feeling bad about yourself - or that you are a failure or have let yourself or your family down: not at all 7. Trouble concentrating on things, such as reading the newspaper or watching television: not at all 8. Moving or speaking so slowly that other people could have noticed. Or the opposite - being so fidgety or restless that you have been moving around a lot more than usual: not at all 9. Thoughts that you would be better off or of hurting yourself in some way: not at all Total score: 0 Depression Screening Interpretation: Negative Depression Screening Done: Yes 34065 - PHQ-9 Billing: Yes Source: Developed by Drs. Willis Coelho, Regine Mcqueen, Marcin Kimbrough and colleagues, with an educational denita from [employer]. Thrive Questionnaire Date Thrive assessed: 09/14/23 I am a: Patient What is your living situation today?: I have a steady place to live Within the past 12 months, did the food you bought not last and you didn't have the money to get more?: Never true Within the past 12 months, did you worry whether your food would run out before you got money to buy more?: Never true Do you have trouble paying for medicines?: No Do you have trouble getting transportation to medical appointments?: No Do you have trouble paying your heating and electricity bill?: No Do you have trouble taking care of your child, family member or friend?: No Do you have trouble with day-to-day activities such as bathing, preparing meals, shopping, managing finances, etc.?: No Are you currently unemployed and looking for a job?: No Are you interested in more education?: No Please select the resources that you would like help with: None AUDIT C Alcohol Use Questionnaire (AUDIT-C) 1. How often do you have a drink containing alcohol?: Monthly or less 2. How many drinks containing alcohol do you have on a typical day when you are drinking?: 1 or 2 Total Score: 1 Score Reviewed/Action Taken: No LORETO-7 AMB Questionnaire LORETO-7 Date LORETO - 7 assessed: 09/14/23 Feeling nervous, anxious, or on edge: 0 = Not at all Not being able to stop or control worryin = Not at all Worrying too much about different things: 0 = Not at all Trouble relaxin = Not at all Being so restless that it is hard to sit still: 0 = Not at all Becoming easily annoyed or irritable: 0 = Not at all Feeling afraid as if something awful might happen: 0 = Not at all Total LORETO-7 score (0-4 normal; 5-9 mild; 10-14 moderate; 15-21 severe): 0 Source: Developed by Drs. Willis Coelho, Regine Mcqueen, Marcin Kimbrough and colleagues, with an educational denita from [employer]. Physical exam (Primary Care) Vital Signs: Last Vital Signs Pulse 81 09/14/23 11:13 BP 136/72 09/14/23 11:13 Pulse Ox 98 09/14/23 11:13 Oxygen Delivery Method Room Air 09/14/23 11:13 Care Plan Goal for BP management: 1+ swelling left lower extremity BMI result Body Mass Index 35.7 Tobacco/Smoking Status: Tobacco use Status Tobacco use date assessed 09/14/23 09/14/23 11:15 Patient Tobacco Use Status Never used Tobacco 09/14/23 11:15 e-Cigarette/Vaping Use Never Used 09/14/23 11:15 PHQ-9: PHQ-9 Score PHQ-9: Total score 0 09/14/23 11:15 Depression Screening Interpretation: Negative Thrive Assessment: Date of Thrive Assessment Date Thrive assessed 09/14/23 09/14/23 11:15 Const General: alert; No acute distress Eyes Conjunctivae: conjunctivae normal Resp Auscultation: clear to auscultation bilaterally Cardio Rate: regular rate Rhythm: regular rhythm GI Inspection: Yes normal to inspection Extrem General: Yes edema Assessment and Plan Assessment & Plan (1) Hypertension: Code(s): I10 - Essential (primary) hypertension Plan: Continue with blood pressure medication. Decrease salt intake and exercise presently on hydrochlorothiazide 12.5 mg once a day (2) Impaired glucose tolerance: Code(s): R73.02 - Impaired glucose tolerance (oral) Plan: Decrease the amount of carbohydrate intake, pasta, bread, rice and potatoes are all sugar and that is aside from all the sweet stuff, remember that fruits are good but they are Sweet also. Hemoglobin A1c is 5.7 (3) Colon cancer screening: Code(s): Z12.11 - Encounter for screening for malignant neoplasm of colon Plan: Patient has a schedule in October (4) Hypercholesterolemia: Code(s): E78.00 - Pure hypercholesterolemia, unspecified Plan: Avoid fried foods, chicken skin, eggs, butter margarine, pastries and meat. Be it pork or beef they have a lot of cholesterol LDL goal of less than 130 and triglyceride of less than 150. Repeat blood work is within normal range (5) Peripheral vascular disease: Comment: Left leg swelling September 2023 Code(s): I73.9 - Peripheral vascular disease, unspecified Plan: When sitting down elevate the legs, exercise, and support stockings Coding Level of Care Code Est Pt Level 4 (58624) Diagnoses Hypertension I10 Impaired glucose tolerance R73.02 Colon cancer screening Z12.11 Hypercholesterolemia E78.00 Peripheral vascular disease I73.9
== END 2023-09-14 11:43 | disposition home or self-care (01) ==
PROVIDERS: PCP Internal Medicine; Visit Provider Internal Medicine
DX: I73.9 Peripheral vascular disease, unspecified (principal); I10 Essential (primary) hypertension; R73.02 Impaired glucose tolerance (oral); Z12.11 Encounter for screening for malignant neoplasm of colon; E78.00 Pure hypercholesterolemia, unspecified
CPT/HCPCS: 99214

== ENCOUNTER 2023-10-24 07:45 | Day surgery (SDC) | payer OTHER, SELFPAY ==
[2023-10-19 13:39] VITALS: BMI 35.7
[2023-10-24 08:50] VITALS: BMI 34.6
[2023-10-24 08:54] VITALS: BP 163/85; PULSE 83; RESP 18; TEMP 36.3; O2SAT 97
[2023-10-24] MEDS: Lactated Ringers 1,000 ML 50 ML IVCONT (09:18)
--- NOTE | 2023-10-24 09:18 | MHC.SHP ---
Pre-Procedural Eval Section A - 24 Hr Update-Section A only Date of Service: 10/24/23 Section B - Complete if H&P > 30 days Chief Complaint: Encounter for screening for malignant neoplasm of Relevant Family History (Specify if Yes): No Present Medications: see Short Stay Collaborative assessment Medical History: Significant History (vated blood pressure reading High cholesterol Myalgias - resolved after knee surgery Osteoarthritis of the left knee ) History of Previous Operations: Relevant previous surgery/procedure and date(s) (Bilateral total knee replacements Arthroscopic surgery left knee ) Allergies: Allergies Allergy/AdvReac Type Severity Reaction Status Date / Time No Known Allergies Allergy Verified 09/14/23 11:14 Review of Systems Sugical H&P ROS: Negative: Constitution, Cardiovascular, Respiratory, Neurological, Psychiatric, Hem-Onc, Allergic/Immunologic, Gastrointestinal, Genitourinary, Musculoskeletal, Integumentary, Endocrine and Eyes/Ears/Nose/Throat Exam Surgical H&P Exam: Normal: HEENT, Normal: Heart, Normal: Lungs, Normal: Extremities, Normal: Abdomen, Normal: Skin and Normal: Neurological Plan Diagnosis/Plan: Unchanged I have reviewed the history and physical and performed a pertinent physical examination on my patient. No changes have occurred unless specified. Time Spent With Patient Time: Total time managing care of this patient today ____ minutes.
--- NOTE | 2023-10-24 09:18 | HO.ANESPROP2 ---
HPI - Anesthesia Eval Consult details Narrative: 62 yo patient for Colonoscopy PMFSH Active Problems Active Problems: All Active Problems (Updated 10/24/23 @ 09:19 by Jana Simon MD) Peripheral vascular disease (Acute) Hypercholesterolemia (Acute) Hypertension (Acute) Impaired glucose tolerance (Acute) Colon cancer screening (Acute) Pre-op examination (Acute) Myalgia (Acute) Osteoarthritis of left knee (Acute) Increased BMI 34.6 Denies KANA Past Medical History Medical History HTN (hypertension) Borderline hyperlipidemia Family History Family History Father Cancer Mother No problems noted. Family history of problems with anesthesia: No Surgical History Surgical History H/O colonoscopy History of knee replacement S/P arthroscopic surgery of left knee History of Problems with Anesthesia: No Social History Social History Housing: House Alcohol intake: current Alcohol intake frequency: a few times a week Alcohol type: beer Patient Tobacco Use Status: Never used Tobacco e-Cigarette/Vaping Use: Never Used Second Hand Smoke Exposure: No Use of substances other than those prescribed or required for medical reasons: No Are you DNR?: No Advance Directives: No Advance Directives Information Provided: Yes service: No Current occupational status: employed Current occupation: [employer] Cognitive needs: No Hearing needs: No Vision needs: No Meds Allergies Allergy/AdvReac Type Severity Reaction Status Date / Time No Known Allergies Allergy Verified 09/14/23 11:14 Exam Height,Weight and Vital Signs: Height 6 ft Weight 115.666 kg Last Vital Signs Temp 97.4 F 10/24/23 08:54 Pulse 83 10/24/23 08:54 Resp 18 10/24/23 08:54 BP 163/85 H 10/24/23 08:54 Pulse Ox 97 10/24/23 08:54 O2 Del Method Room Air 10/24/23 08:54 Airway Mallampati Class: III TM Dist: >3cm Neck ROM: Full Loose/Missing/Broken Teeth: Yes (Missing tooth top back left. Denies loose or broken teeth) Heart: RRR Lungs: CTAB Assessment and Plan Assessment Anesthesia Assessment: Anesthesia Plan Discussed and Chart Reviewed Final Anesthetic Review Family History of Problems with Anesthesia: No History of Problems with Anesthesia: No NPO: Yes ASA Class: II Final Preanesthetic Review: No Changes in Pt Med Stat, Meds/Allgs Chart Reviewed, Consent Obtained/Reviewed and Anes Risks/Benef Reviewed Patient Risk: Intermediate Procedure Risk: Low Assessment/Block/Sedation in SS: Assess/Block/Sedation-SS Anesthetic Plan Anesthetic Plan: TIVA Disposition: Standard PACU
--- NOTE | 2023-10-24 09:19 | W.PM.OPN ---
Operative Note Operative Note Date of Service: 10/24/23 Narrative: Operative Information Procedure Description: Colonoscopy Indication: screening Anesthesia: MAC COLONOSCOPY Instrument: Olympus variable stiffness ADULT scope 190L Colonoscopy Monitoring: Vital signs and clinical assessment, continuous EKG monitoring, Pulse oximetry, Carbon Dioxide monitoring and blood pressure monitoring were done throughout the procedure. Colon withdrawal time was 10 minutes. Procedure: The patient was placed in the left lateral decubitis position and pre-procedure medications were administered. After a digital rectal examination of the ano-rectum, the video colonoscope was inserted into the rectum and advanced through the colon to the cecum/TI. The colonoscope was slowly withdrawn in a retrograde panoramic fashion and the colon mucosa was carefully examined including a retroflexed view of the rectum. Findings and interventions are described below. Procedure Difficulty: easy Findings: Terminal Ileum-normal Cecum:normal Ascending Colon: patchy diverticulosis, x 1 sessile polyp 6-7 mm removed with cold snare Transverse Colon -normal Descending Colon: moderate diverticulosis Sigmoid Colon: moderate diverticulosis with some mucosal erythema and swelling Rectum: Retroflexion with small internal hemorrhoids, grade I Anorectum - normal Colon preparation: [place] Bowel Preparation Scale Right colon; 1-2 Transverse colon: 2 Left colon; 3 (0 = Unprepared colon segment with mucosa not seen due to solid stool that cannot be cleared. 1 = Portion of mucosa of the colon segment seen, but other areas of the colon segment not well seen due to staining, residual stool and/or opaque liquid. 2 = Minor amount of residual staining, small fragments of stool and/or opaque liquid, but mucosa of colon segment seen well. 3 = Entire mucosa of colon segment seen well with no residual staining, small fragments of stool or opaque liquid) Impression and Post Procedure Diagnosis: polyp internal hemorrhoids diverticular disease Plan: High fiber diet leaflet Avoid straining at stool, epsom salts and sitz bath, anusol supps or cream Repeat Colonoscopy in 5-6 years due to polyp and some areas of fair prep in right colon or earlier if clinically indicated Above findings were reviewed with the patient and relevant handouts were provided if indicated.
[2023-10-24 10:10] VITALS: BP 122/64; PULSE 76; RESP 16; TEMP 36.3; O2SAT 98
[2023-10-24 10:25] VITALS: BP 128/78; PULSE 67; RESP 18; TEMP 36.2; O2SAT 97
== END 2023-10-24 10:49 | disposition home or self-care (01) ==
PROVIDERS: PCP Internal Medicine; Visit Provider Internal Medicine Gastroenterology
PROC: 0DJD8ZZ Inspection of Lower Intestinal Tract, Via Natural or Artificial Opening Endoscopic (ICD-10-PCS; CPT 45378; principal; 2023-10-24 10:40)
DX: Z12.11 Encounter for screening for malignant neoplasm of colon (principal); D12.2 Benign neoplasm of ascending colon; K57.30 Diverticulosis of large intestine without perforation or abscess without bleeding; K64.0 First degree hemorrhoids
CPT/HCPCS: 45385; 88305; J2704

== ENCOUNTER → 2023-10-24 07:45 | Outpatient (BNV) | payer OTHER, SELFPAY | PROVIDERS: PCP Internal Medicine; Visit Provider Internal Medicine Gastroenterology | DX: Z12.11 Encounter for screening for malignant neoplasm of colon (principal); K63.5 Polyp of colon; K57.90 Diverticulosis of intestine, part unspecified, without perforation or abscess without bleeding; K64.8 Other hemorrhoids | CPT/HCPCS: 45380 ==

== ENCOUNTER 2023-11-07 08:43 | Outpatient (AMB) | payer OTHER, SELFPAY ==
[2023-11-07 08:48] VITALS: BP 136/66; PULSE 94; BMI 36.2
--- NOTE | 2023-11-07 08:48 | MHC.OFFVIS ---
Intake Vital Signs 11/07/23 08:48 Height 6 ft Weight 266 lb 12.149 oz BMI 36.2 BP 136/66 Blood Pressure Location Lt brachial Position Sitting Pulse 94 Intake Visit Reasons: s/p colon Intake Note: Patient in office in follow up s/p colonoscopy on 10/24/23. CC: Patient reports doing well and denies having any GI concerns. Distribution Operations Supervisor Required: No Accompanied by: Spouse Allergies No Known Allergies Allergy (Verified 11/07/23 08:56) HPI s/p colon HPI Details Assessment & Plan (1) Pre-op examination: Code(s): Z01.818 - Encounter for other preprocedural examination Plan: He had a prior colonoscopy over 10 years ago that he remembers as negative. He denies any bowel or upper GI problems. There are no prior problems with anesthesia or sedation. He denies any cardiac or respiratory problems. No ID problems. There is no known FHX of crc or polyps. Orders: Orders Colonoscopy - GI U se Only 06/26/23 Medications: New peg 3350-electroly cristobal 236-22.74-6.74 -5.86 gram (Golyt chelsey) until feca l effluent is baljeet r; do not exceed a total volume of 2 ,000 mL 240 mL PO Q10M 4,0 00 mL 0RF 1 day Z12.11 - Encounter for screening for malignant neoplas m of colon COLONOSCOPY 10/24/23 Findings: Terminal Ileum-normal Cecum:normal Ascending Colon: patchy diverticulosis, x 1 sessile polyp 6-7 mm removed with cold snare Transverse Colon -normal Descending Colon: moderate diverticulosis Sigmoid Colon: moderate diverticulosis with some mucosal erythema and swelling Rectum: Retroflexion with small internal hemorrhoids, grade I Anorectum - normal Impression and Post Procedure Diagnosis: polyp internal hemorrhoids diverticular disease Plan: High fiber diet leaflet Avoid straining at stool, epsom salts and sitz bath, anusol supps or cream Repeat Colonoscopy in 5-6 years due to polyp and some areas of fair prep in right colon or earlier if clinically indicated BIOPSY Received: 10/24/23 Diagnosis Colon, ascending, polyp: Sessile serrated lesion/polyp without dysplasia TODAY'S VISIT He is agreeable to a 5 year follow up. The procedure was well tolerated. The results were explained and the patient is agreeable to the follow-up interval as stated. The bowel pattern has returned to normal. Education was provided to tell any 1st degree relatives about their findings to be sure that they are screened by age 45. Educated that they will be put on a recall list when it is time for their repeat scope but should they move out of state or away from the hospital they will need to remember along with their primary to repeat the procedure in a timely fashion to avoid any adverse complications. [facility] Medical History HTN (hypertension) Borderline hyperlipidemia Surgical History H/O colonoscopy History of knee replacement S/P arthroscopic surgery of left knee Family History Father Cancer Mother No problems noted. Social History Housing: House Alcohol intake: current Alcohol intake frequency: a few times a week Alcohol type: beer Patient Tobacco Use Status: Never used Tobacco e-Cigarette/Vaping Use: Never Used Second Hand Smoke Exposure: No service: No Current occupational status: employed Current occupation: [employer] Cognitive needs: No Hearing needs: No Vision needs: No Review of Systems Const Denies fatigue, Denies fever(s), Denies night sweats, Denies poor appetite and Denies weight loss ENT Reports Normal hearing present, Denies dental pain, Denies dysphagia, Denies hearing loss, Denies mouth pain, Denies odynophagia, Denies throat swelling, Denies tongue swelling and Reports other (Dentition adequate) Card Reports no additional complaints Resp Reports no additional complaints GI Details: Denies abdominal pain, Denies melena, Denies bloating, Denies hematochezia, Denies constipation, Denies GI cramping, Denies dysphagia, Denies excessive flatus, Denies early satiety, Denies heartburn, Denies diarrhea, Denies nausea, Denies odynophagia, Denies vomiting and Denies hematemesis Skin/Breast Denies pruritus, Denies lesions, Denies rash and Denies jaundice Neuro Reports Normal hearing present and Denies Abnormal speech present Endo Denies fatigue Aller/Immun Denies throat swelling and Denies tongue swelling Physical Exam Vital Signs: Last Vital Signs Pulse 94 11/07/23 08:48 BP 136/66 11/07/23 08:48 BMI result Body Mass Index 36.2 Const General: cooperative, no acute distress, well developed and well groomed Nutritional Appearance: well nourished and obese Orientation/consciousness: oriented to person, oriented to place and oriented to time Limitations: No language barrier HEENT Head: Yes normocephalic and Yes atraumatic Eyes General: appearance normal, both eyes and all related structures Pupils: Equal, round and reactive pupils present Neck Neck: Yes normal visual inspection and Yes no lymphadenopathy Thyroid: Thyroid normal Resp Effort & Inspection: normal respiratory effort and able to speak in complete sentences Auscultation: clear to auscultation bilaterally Cardio Rate: regular rate Rhythm: regular rhythm Heart sounds: Normal, physiologic split S2 sound present Peripheral pulses: radial pulses present and posterior tibial pulses present GI Inspection: No distended, No Abdominal panniculus present and Yes obesity Palpation (GI): Soft to palpation, nontender, no guarding, not rigid and No hepatosplenomegaly present Percussion: Yes normal to percussion Auscultation: normal bowel sounds Rectal Exam - Male: Yes deferred Skin General skin exam: no rashes or lesions noted, turgor normal, skin not dry, no jaundice, No spider nevi and no striae Rashes: no rashes Nails: normal Neuro General: oriented to person, oriented to place and oriented to time Cranial nerves: Yes Equal, round and reactive pupils present and Yes Normal hearing present Speech: No Abnormal speech present Extrem General: Yes normal to inspection, No clubbing, No cyanosis and No edema Psych Appearance: grossly normal and well kempt Mental Status: mental status grossly normal Speech and movement: Normal speech and movement present Affect: normal affect Attitude: cooperative Thought process: Normal thought process present and not confabulating Thought content: Normal thought content present Insight: Good insight present (Psych) Judgement: Good judgement present (Psych) Assessment & Plan Assessment & Plan (1) Tubular adenoma of colon: Comment: 2023 SCOPE REPEAT IN 5 YEARS Code(s): D12.6 - Benign neoplasm of colon, unspecified Plan He is agreeable to a 5 year follow up. The procedure was well tolerated. The results were explained and the patient is agreeable to the follow-up interval as stated. The bowel pattern has returned to normal. Education was provided to tell any 1st degree relatives about their findings to be sure that they are screened by age 45. Educated that they will be put on a recall list when it is time for their repeat scope but should they move out of state or away from the hospital they will need to remember along with their primary to repeat the procedure in a timely fashion to avoid any adverse complications. Coding Level of Care Code Est Pt Level 3 (27793) Diagnoses Tubular adenoma of colon D12.6
== END 2023-11-07 09:01 | disposition home or self-care (01) ==
PROVIDERS: PCP Internal Medicine; Visit Provider Nurse Practitioner
DX: D12.6 Benign neoplasm of colon, unspecified (principal)
CPT/HCPCS: 99213

== ENCOUNTER → 2023-11-07 08:43 | Outpatient (BNVA) | payer OTHER, SELFPAY | PROVIDERS: PCP Internal Medicine; Visit Provider Nurse Practitioner ==

== ENCOUNTER 2024-03-17 11:13 | Outpatient (AMB) | payer OTHER, SELFPAY ==
[2024-03-17 11:27] VITALS: BP 144/82; PULSE 81; O2SAT 97; BMI 36.1
--- NOTE | 2024-03-17 11:27 | MHC.PC.OV ---
Vital Signs 03/17/24 11:27 Height 6 ft Weight 266 lb BMI 36.1 BP 144/82 H Blood Pressure Location Lt brachial Position Sitting Pulse 81 Pulse Source Pulse Oximeter Pulse Oximetry (%) 97 Oxygen Delivery Method Room Air Intake Visit Reasons: Annual exam Allergies No Known Allergies Allergy (Verified 03/17/24 11:27) Medication List - Last Reconciled 03/17/24 by Osmani Gutierrez MD [beets PO] hydrochlorothiazide 12.5 mg PO QAM Tobacco use date assessed: 09/14/23 Dental Screening Dental Screen Date: 03/17/24 Did you have a dental visit in the last 12 months?: No Did you have a dental problem in the last 6 months where you did not have access to dental care?: No Was dental information given to patient?: Patient has dentist HPI Annual exam HPI Details 63-year-old obese male with hypertension, impaired glucose tolerance hypercholesterolemia and peripheral vascular disease last seen in September 2023. Patient had colonoscopy done in October 2023. Had internal hemorrhoids and diverticular disease and has been advised to repeat colonoscopy in 5-6 years had a polyp sessile serrated lesion without dysplasia PFSH Medical History (Updated 03/17/24 @ 12:14 by Osmani Gutierrez MD) Colon cancer screening HTN (hypertension) Borderline hyperlipidemia Surgical History H/O colonoscopy History of knee replacement S/P arthroscopic surgery of left knee Family History (Updated 03/17/24 @ 12:01 by Osmani Gutierrez MD) Father Cancer Lung cancer Stomach cancer Mother Breast cancer Brother Myocardial infarct Social History (Updated 03/17/24 @ 12:03 by Osmani Gutierrez MD) Housing: House Alcohol intake: current Alcohol intake frequency: a few times a week Alcohol type: beer Comment: 3x a week 4 beers Patient Tobacco Use Status: Former Tobacco user Years Smoked: stopped 22 years old e-Cigarette/Vaping Use: Never Used Second Hand Smoke Exposure: No service: No Current occupational status: employed Current occupation: [employer] Cognitive needs: No Hearing needs: No Vision needs: Yes Questionnaire PHQ-9 Over the last 2 weeks, how often have you been bothered by any of the following problems? 1. Little interest or pleasure in doing things: not at all 2. Feeling down, depressed, or hopeless: not at all 3. Trouble falling or staying asleep, or sleeping too much: not at all 4. Feeling tired or having little energy: not at all 5. Poor appetite or overeating: not at all 6. Feeling bad about yourself - or that you are a failure or have let yourself or your family down: not at all 7. Trouble concentrating on things, such as reading the newspaper or watching television: not at all 8. Moving or speaking so slowly that other people could have noticed. Or the opposite - being so fidgety or restless that you have been moving around a lot more than usual: not at all 9. Thoughts that you would be better off or of hurting yourself in some way: not at all Total score: 0 Depression Screening Interpretation: Negative Depression Screening Done: Yes 18697 - PHQ-9 Billing: Yes Source: Developed by Drs. Willis Coelho, Regine Mcqueen, Marcin Kimbrough and colleagues, with an educational denita from [employer]. Thrive Questionnaire Date Thrive assessed: 09/14/23 AUDIT C Alcohol Use Questionnaire (AUDIT-C) 1. How often do you have a drink containing alcohol?: Monthly or less 2. How many drinks containing alcohol do you have on a typical day when you are drinking?: 1 or 2 Total Score: 1 Score Reviewed/Action Taken: No LORETO-7 AMB Questionnaire LORETO-7 Date LORETO - 7 assessed: 09/14/23 Source: Developed by Drs. Willis Coelho, Regine Mcqueen, Marcin Kimbrough and colleagues, with an educational denita from [employer]. Review of Systems Const Denies poor appetite and Denies weakness Eyes Denies no additional complaints ENT Reports Normal hearing present, Denies dizziness, Denies nasal congestion, Denies tinnitus and Denies sore throat Card Denies chest pain, Denies syncope, Denies rapid heart rate and Denies dyspnea Resp Denies cough and Denies dyspnea GI Denies change in stool character, Reports constipation, Denies diarrhea, Denies nausea and Denies vomiting Denies dysuria and Denies urinary frequency Neuro Reports Normal hearing present, Denies confusion, Denies dizziness, Denies syncope and Denies weakness Psych Denies confusion Physical exam (Primary Care) Vital Signs: Last Vital Signs Pulse 81 07/15/24 11:27 BP 144/82 H 03/17/24 11:27 Pulse Ox 97 03/17/24 11:27 Oxygen Delivery Method Room Air 03/17/24 11:27 BMI result Body Mass Index 36.1 Tobacco/Smoking Status: Tobacco use Status Tobacco use date assessed 09/14/23 03/17/24 11:31 Patient Tobacco Use Status Never used Tobacco 03/17/24 11:31 e-Cigarette/Vaping Use Never Used 03/17/24 11:31 PHQ-9: PHQ-9 Score PHQ-9: Total score 0 03/17/24 11:55 Depression Screening Interpretation: Negative Thrive Assessment: Date of Thrive Assessment Date Thrive assessed 09/14/23 03/17/24 11:31 Const General: No confusion Orientation/consciousness: No confusion HENMT Head: Yes normocephalic Ears: external ears normal and TM's normal bilaterally Face and sinus: Yes normal facial exam Mouth: moist mucous membranes Throat: Yes tonsils normal Eyes Conjunctivae: conjunctivae normal Pupils: Equal, round and reactive pupils present and Pupil accommodation reflex normal Direct Ophthalmoscopy: normal light reflex Neck Neck: No lymphadenopathy Thyroid: Thyroid normal Chest Chest palpation & inspection: normal inspection of the chest Resp Effort & Inspection: normal respiratory effort and no audible wheezes Auscultation: clear to auscultation bilaterally, no crackles, no wheezes and lung sounds not diminished Cardio Rate: regular rate Rhythm: regular rhythm Peripheral pulses: radial pulses present and dorsalis pedis present GI Palpation (GI): no masses Auscultation: normal bowel sounds and normoactive bowel sounds Rectal Exam - Male: Yes deferred Skin General skin exam: no rashes or lesions noted Rashes: no rashes Neuro General: No confusion Cranial nerves: Yes Equal, round and reactive pupils present and Yes Normal hearing present Cognition (Neuro): normal cognition Gait exam (Neuro): Normal gait present Motor exam (neuro): 5/5 motor strength present throughout Deep tendon reflexes (DTR's): Right brachioradialis reflex intensity grade: 2+, Left brachioradialis reflex intensity grade: 2+, Right patellar reflex intensity grade: 2+ and Left patellar reflex intensity grade: 2+ Extrem General: No edema Assessment and Plan Assessment & Plan (1) Annual physical exam: Code(s): Z00.00 - Encounter for general adult medical examination without abnormal findings Plan: Patient is advised to eat healthy, keep well hydrated, keep active and have adequate sleep. (2) Tubular adenoma of colon: Comment: 2023 SCOPE REPEAT IN 5 YEARS Code(s): D12.6 - Benign neoplasm of colon, unspecified Plan: Patient had colonoscopy done in October 2023 and has been advised to repeat the test in 5 years (3) Impaired glucose tolerance: Code(s): R73.02 - Impaired glucose tolerance (oral) Plan: Decrease the amount of carbohydrate intake, pasta, bread, rice and potatoes are all sugar and that is aside from all the sweet stuff, remember that fruits are good but they are Sweet also. (4) Hypertension: Code(s): I10 - Essential (primary) hypertension Plan: Continue with blood pressure medication. Decrease salt intake and exercise presently on hydrochlorothiazide 12.5 mg once a day (5) Hypercholesterolemia: Code(s): E78.00 - Pure hypercholesterolemia, unspecified Plan: Avoid fried foods, chicken skin, eggs, butter margarine, pastries and meat. Be it pork or beef they have a lot of cholesterol Rosalnia blood work LDL did come down. (6) Tinea corporis: Code(s): B35.4 - Tinea corporis Medications: New lisinopril-hydrochlorothiazide 10-12.5 mg 1 tab PO DAILY 30 tabs 3RF I10 - Essential (primary) hypertension Discontinued hydrochlorothiazide Discontinued Reason: Doctor's Order 12.5 mg PO QAM 90 tabs 1RF I10 - Essential (primary) hypertension Coding Level of Care Code Est Pt Prev Care 40-64y(44250) Diagnoses Annual physical exam Z00.00 Tubular adenoma of colon D12.6 Impaired glucose tolerance R73.02 Hypertension I10 Hypercholesterolemia E78.00 Tinea corporis B35.4
== END 2024-03-17 12:16 | disposition home or self-care (01) ==
PROVIDERS: PCP Internal Medicine; Visit Provider Internal Medicine
DX: Z00.00 Encounter for general adult medical examination without abnormal findings (principal); D12.6 Benign neoplasm of colon, unspecified; R73.02 Impaired glucose tolerance (oral); I10 Essential (primary) hypertension; E78.00 Pure hypercholesterolemia, unspecified; B35.4 Tinea corporis
CPT/HCPCS: 99396

== ENCOUNTER 2024-06-23 10:43 | Outpatient (AMB) | payer OTHER, SELFPAY ==
[2024-06-23 10:44] VITALS: BP 128/70; PULSE 79; O2SAT 98; BMI 36.3
--- NOTE | 2024-06-23 10:44 | A.OFFPC_ITS ---
Vital Signs 06/23/24 10:44 Height 6 ft Weight 268 lb BMI 36.3 BP 128/70 Blood Pressure Location Lt brachial Position Sitting Pulse 79 Pulse Source Pulse Oximeter Pulse Oximetry (%) 98 Oxygen Delivery Method Room Air Intake Visit Reasons: 3 Month F/U Day Porter Required: No Allergies No Known Allergies Allergy (Verified 06/23/24 11:09) Medication List - Last Reconciled 06/23/24 by Izabella Garcia PA-C [beets PO] lisinopril-hydrochlorothiazide 10-12.5 mg 1 tab PO DAILY Tobacco use date assessed: 09/14/23 Dental Screening Dental Screen Date: 03/17/24 HPI 3 Month F/U HPI Details 63-year-old male with past medical histo ry of hypertension, impaired glucose tolerance, hypercholesterolemia, and peripheral vascular disease last seen by Dr. Gutiererz March 2024 coming in for follow up. Patient states he is feeling generally well. He has had a dry cough for several years however in the last few months the cough has increased in frequency and intensity. There is no pattern to the coughing fits in the typically self resolve. He has no other concerns today. [facility] Medical History Colon cancer screening HTN (hypertension) Borderline hyperlipidemia Surgical History H/O colonoscopy History of knee replacement S/P arthroscopic surgery of left knee Family History Father Cancer Lung cancer Stomach cancer Mother Breast cancer Brother Myocardial infarct Social History Housing: House Alcohol intake: current Alcohol intake frequency: a few times a week Alcohol type: beer Comment: 3x a week 4 beers Patient Tobacco Use Status: Former Tobacco user Years Smoked: stopped 22 years old e-Cigarette/Vaping Use: Never Used Second Hand Smoke Exposure: No service: No Current occupational status: employed Current occupation: [employer] Cognitive needs: No Hearing needs: No Vision needs: Yes Questionnaire Thrive Questionnaire Date Thrive assessed: 09/14/23 AUDIT C Alcohol Use Questionnaire (AUDIT-C) 1. How often do you have a drink containing alcohol?: Monthly or less 2. How many drinks containing alcohol do you have on a typical day when you are drinking?: 1 or 2 3. How often do you have six or more drinks on one occasion?: Never Total Score: 1 Score Reviewed/Action Taken: No LORETO-7 AMB Questionnaire LORETO-7 Date LORETO - 7 assessed: 09/14/23 Source: Developed by Drs. Willis Coelho, Regine Mcqueen, Marcin Kimbrough and colleagues, with an educational denita from [employer]. Review of Systems Const Denies body aches, Denies chills, Denies fever(s), Denies headache(s) and Denies poor appetite Eyes Reports no additional complaints ENT Denies dizziness and Denies headache(s) Card Denies chest pain, Denies lightheadedness and Denies dyspnea Resp Reports cough, Denies hemoptysis, Denies excessive phlegm production, Denies pain with cough and Denies dyspnea GI Denies abdominal pain, Denies nausea and Denies vomiting Reports no additional complaints Musc Reports no additional complaints and Denies abnormal gait Skin/Breast Reports system reviewed and no additional complaints, except as documented Neuro Denies abnormal gait, Denies dizziness and Denies headache(s) Psych Reports no additional complaints Physical exam (Primary Care) Vital Signs: Last Vital Signs Pulse 79 06/23/24 10:44 BP 128/70 06/23/24 10:44 Pulse Ox 98 06/23/24 10:44 Oxygen Delivery Method Room Air 06/23/24 10:44 BMI result Body Mass Index 36.3 Tobacco/Smoking Status: Tobacco use Status Tobacco use date assessed 09/14/23 06/23/24 10:44 Patient Tobacco Use Status Former Tobacco user 06/23/24 10:44 e-Cigarette/Vaping Use Never Used 06/23/24 10:44 Thrive Assessment: Date of Thrive Assessment Date Thrive assessed 09/14/23 06/23/24 10:44 Const General: cooperative, healthy appearing, comfortable and no acute distress Orientation/consciousness: patient oriented x3 HENMT Head: Yes normocephalic Ears: hearing grossly normal bilaterally General nose exam: Normal external nose present Eyes General: appearance normal, both eyes and all related structures Conjunctivae: conjunctivae normal Neck Neck: Yes full ROM and Yes no lymphadenopathy Resp Effort & Inspection: normal respiratory effort Auscultation: clear to auscultation bilaterally, no crackles, no rales, no rhonchi and no wheezes Cardio Rate: regular rate Rhythm: regular rhythm Skin General skin exam: no rashes or lesions noted Neuro General: patient oriented x3 Gait exam (Neuro): Normal gait present Extrem General: Yes normal to inspection, Yes full ROM and No edema Psych Affect: normal affect Attitude: cooperative Insight: Good insight present (Psych) Judgement: Good judgement present (Psych) Coding Level of Care Code Est Pt Level 4 (67888) Diagnoses Peripheral vascular disease I73.9 Hypercholesterolemia E78.00 Hypertension I10 Impaired glucose tolerance R73.02 Cough R05.9 Assessment & Plan Assessment & Plan (1) Peripheral vascular disease: Comment: Left leg swelling September 2023 Code(s): I73.9 - Peripheral vascular disease, unspecified Category: Medical Plan: Work on good control of blood pressure, cholesterol, blood sugar. (2) Hypercholesterolemia: Code(s): E78.00 - Pure hypercholesterolemia, unspecified Category: Medical Plan: Avoid foods that are high in cholesterol such as red meat, fried foods, eggs and baked goods. Triglyceride goal of less than 150 and LDL goal of less than 100. Not currently on medical management. Ordered for updated blood work and follow up in 3 months. (3) Hypertension: Code(s): I10 - Essential (primary) hypertension Category: Medical Plan: Patient has a cough while on lisinopril-hydrochlorothiazide combo pill. Discontinue this medication at this time and replaced with losartan- hydrochlorothiazide, pill and follow up in 3 months. Avoid salt intake and encourage healthy diet and regular exercise. (4) Impaired glucose tolerance: Code(s): R73.02 - Impaired glucose tolerance (oral) Category: Medical Plan: Decrease the amount of carbohydrates such as pasta, bread, rice, and potatoes and limit the amount of sweets. Although fruits are generally healthy they should be eaten in moderation as they are still high in sugar. Hemoglobin A1c goal of less than 7%. Ordered for updated blood work. (5) Cough: Code(s): R05.9 - Cough, unspecified Category: Medical Plan: Seems to be chronic in nature however worsened since starting the lisinopril. We will discontinue lisinopril at this time and replaced with losartan for blood pressure management. Ordered for chest x-ray for further evaluation and advised patient to use [id number] antihistamines daily. Plan This note was constructed using voice recognition software. While every effort has been made to ensure accuracy and patient service specialist, still areas may have been included sometimes these areas may affect the content or meeting of the given symptoms. Total time spent caring for the patient today was 30 minutes. This includes time spent before the visit reviewing the chart, time spent during the visit, and time spent after the visit and documentation. Orders: Orders Lipid Panel 3 Months Z00.00 - Encounter for general adult medical examination without abnormal findings Hemoglobin A1c 3 Months Z00.00 - Encounter for general adult medical examination without abnormal findings XR chest 2V Today R05.9 - Cough, unspecified Medications: New losartan-hydrochlorothiazide 50-12.5 mg 1 tab PO DAILY 30 tabs 2RF Discontinued lisinopril-hydrochlorothiazide 10-12.5 mg Discontinued Reason: Patient no longer taking 1 tab PO DAILY 90 tabs 1RF I10 - Essential (primary) hypertension
== END 2024-06-23 11:18 | disposition home or self-care (01) ==
PROVIDERS: PCP Internal Medicine
DX: I73.9 Peripheral vascular disease, unspecified (principal); E78.00 Pure hypercholesterolemia, unspecified; I10 Essential (primary) hypertension; R73.02 Impaired glucose tolerance (oral); R05.9 Cough, unspecified

== ENCOUNTER → 2024-06-23 10:43 | Outpatient (BNVA) | payer OTHER, SELFPAY | PROVIDERS: PCP Internal Medicine ==

== ENCOUNTER 2024-08-08 06:01 | Outpatient (REF) | payer OTHER, SELFPAY ==
[2024-08-08 07:30] LABS: Estimated Average Glucose 114 mg/dL; Hemoglobin A1C 132.3905 umol/L; Hemoglobin A1c % 5.6 % (<6.0); Total Hemoglobin (HGBA1C) 3501.6662 umol/L
[2024-08-08 08:04] LABS: Cholesterol 183 mg/dL (<200); HDL Cholesterol 51 mg/dL (>40); LDL Cholesterol Calculated 111 mg/dL (<100); Triglycerides 107 mg/dL (<150)
== END 2024-08-08 06:02 | disposition home or self-care (01) ==
LOC: HO.LAB 06:01
PROVIDERS: PCP Internal Medicine
DX: Z00.00 Encounter for general adult medical examination without abnormal findings (principal); Z13.1 Encounter for screening for diabetes mellitus
CPT/HCPCS: 36415; 80061; 83036

== ENCOUNTER 2024-09-23 08:54 | Outpatient (AMB) | payer OTHER, SELFPAY ==
--- NOTE | 2024-09-23 08:58 | A.OFFPC_ITS ---
Vital Signs 09/23/24 09:01 Height 6 ft Weight 282 lb BMI 38.2 BP 120/64 Blood Pressure Location Lt brachial Position Sitting Pulse 80 Pulse Source Pulse Oximeter Temp 97.1 F Temp Source Skin Pulse Oximetry (%) 95 Oxygen Delivery Method Room Air Intake Visit Reasons: follow up on DM and HLD Intake Note: Patient is here to follow up on DM, HLD. Supply Chain Logistics Manager Required: No Field Property Loss Specialist: Not Required per policy Accompanied by: Self / Same As Patient Allergies No Known Allergies Allergy (Verified 09/23/24 09:01) Tobacco use date assessed: 09/23/24 Dental Screening Dental Screen Date: 09/23/24 Did you have a dental visit in the last 12 months?: No Did you have a dental problem in the last 6 months where you did not have access to dental care?: No Was dental information given to patient?: Patient has dentist HPI follow up on DM and HLD HPI Details The patient is a 63-year-old male with significant past medical history of peripheral vascular disease, hypercholesterolemia, hypertension, impaired glucose tolerance He is a patient of Dr. Gutierrez and was last seen on 06/23/2024 by Izabella, at that visit the patient blood pressure medication was changed from an Jacob to an Arb due to his complaints of chronic cough Patient is presenting today and is feeling much better and reported that his cough has subsided Reports that sometimes he feels like he has a sensation to cough but nothing happens Patient denies chest pain, shortness of breath, dizziness palpitation Instead of return in 3 months monitor blood pressure, patient requested if he could come back in six-month because he already appointment with Dr. Soriano in March. This appointment is for the patient physical. Labs were ordered and the patient was encouraged to get these done about a week prior to this appointment. SDM: The patient Blood pressure appears to be well controlled on his current treatment. The patient could follow up in 6 months per request. --Received a flu shot office today [facility] Medical History Colon cancer screening HTN (hypertension) Borderline hyperlipidemia Surgical History H/O colonoscopy History of knee replacement S/P arthroscopic surgery of left knee Family History Father Cancer Lung cancer Stomach cancer Mother Breast cancer Brother Myocardial infarct Social History Housing: House Alcohol intake: current Alcohol intake frequency: a few times a week Alcohol type: beer Comment: 3x a week 4 beers Patient Tobacco Use Status: Former Tobacco user Years Smoked: stopped 22 years old e-Cigarette/Vaping Use: Never Used Second Hand Smoke Exposure: Yes service: No Current occupational status: employed Current occupation: [employer] Cognitive needs: No Hearing needs: No Vision needs: Yes Questionnaire PHQ-9 Over the last 2 weeks, how often have you been bothered by any of the following problems? 1. Little interest or pleasure in doing things: not at all 2. Feeling down, depressed, or hopeless: not at all 3. Trouble falling or staying asleep, or sleeping too much: not at all 4. Feeling tired or having little energy: not at all 5. Poor appetite or overeating: not at all 6. Feeling bad about yourself - or that you are a failure or have let yourself or your family down: not at all 7. Trouble concentrating on things, such as reading the newspaper or watching television: not at all 8. Moving or speaking so slowly that other people could have noticed. Or the opposite - being so fidgety or restless that you have been moving around a lot more than usual: not at all 9. Thoughts that you would be better off or of hurting yourself in some way: not at all Total score: 0 Depression Screening Interpretation: Negative Depression Screening Done: Yes 91904 - PHQ-9 Billing: Yes Source: Developed by Drs. Willis Coelho, Regine Mcqueen, Marcin Kimbrough and colleagues, with an educational denita from [employer]. Thrive Questionnaire Date Thrive assessed: 09/23/24 I am a: Patient What is your living situation today?: I have a steady place to live Within the past 12 months, did the food you bought not last and you didn't have the money to get more?: Never true Within the past 12 months, did you worry whether your food would run out before you got money to buy more?: Never true Do you have trouble paying for medicines?: No Do you have trouble getting transportation to medical appointments?: No Do you have trouble paying your heating and electricity bill?: No Do you have trouble taking care of your child, family member or friend?: No Do you have trouble with day-to-day activities such as bathing, preparing meals, shopping, managing finances, etc.?: No Are you currently unemployed and looking for a job?: No Are you interested in more education?: No Please select the resources that you would like help with: None Currently or been in a relationship where the following occur: No concerns reported THRIVE Score: 0 AUDIT C Alcohol Use Questionnaire (AUDIT-C) 1. How often do you have a drink containing alcohol?: Monthly or less 2. How many drinks containing alcohol do you have on a typical day when you are drinking?: 1 or 2 Total Score: 1 LORETO-7 AMB Questionnaire LORETO-7 Date LORETO - 7 assessed: 09/23/24 Feeling nervous, anxious, or on edge: 0 = Not at all Not being able to stop or control worryin = Not at all Worrying too much about different things: 0 = Not at all Trouble relaxin = Not at all Being so restless that it is hard to sit still: 0 = Not at all Becoming easily annoyed or irritable: 0 = Not at all Feeling afraid as if something awful might happen: 0 = Not at all Total LORETO-7 score (0-4 normal; 5-9 mild; 10-14 moderate; 15-21 severe): 0 Source: Developed by Drs. Willis Coelho, Regine Mcqueen, Marcin Kimbrough and colleagues, with an educational denita from [employer]. LORETO-7 Assessment Billing LORETO-7 Assessment Tool: LORETO-7 Assessment 66908 Review of Systems Const Details: Denies chills, Denies fatigue, Denies fever(s), Denies headache(s) and Denies weakness HEENT Denies change in vision, Denies dizziness, Denies headache(s), Denies hearing loss, Denies nasal congestion, Denies sinus pain, Denies sinus pressure and Denies sore throat Card Denies chest pain, Denies lightheadedness, Denies dyspnea and Denies other (palpitations) Resp Denies cough, Denies dyspnea and Denies wheezing GI Denies abdominal pain, Denies melena, Denies hematochezia, Denies change in bowel habits, Denies dyspepsia and Denies nausea Denies hematuria and Denies dysuria Musc Denies abnormal gait, Denies myalgias, Denies arthralgias, Denies numbness and Denies tingling Skin/Breast Denies rash, Denies unusual bruising and Denies wounds Neuro Denies abnormal gait, Denies dizziness, Denies headache(s), Denies memory loss, Denies numbness, Denies Sensory deficit (Neuro), Denies tingling and Denies weakness Psych Denies anxiety, Denies depression and Denies memory loss Endo Denies cold intolerance, Denies fatigue, Denies heat intolerance, Denies polydipsia and Denies polyuria Harry/Lymph Denies easy bleeding and Denies easy bruising Aller/Immun Denies wheezing Physical exam (Primary Care) Vital Signs: Last Vital Signs Temp 97.1 F 09/23/24 09:01 Pulse 80 09/23/24 09:01 BP 120/64 09/23/24 09:01 Pulse Ox 95 09/23/24 09:01 Oxygen Delivery Method Room Air 09/23/24 09:01 BMI result Body Mass Index 38.2 Tobacco/Smoking Status: Tobacco use Status Tobacco use date assessed 09/23/24 09/23/24 09:06 Patient Tobacco Use Status Former Tobacco user 09/23/24 09:06 e-Cigarette/Vaping Use Never Used 09/23/24 09:06 PHQ-9: PHQ-9 Score PHQ-9: Total score 0 09/23/24 09:20 Depression Screening Interpretation: Negative Thrive Assessment: Date of Thrive Assessment Date Thrive assessed 09/23/24 09/23/24 09:06 Currently or been in a relationship where the following occur: No concerns reported Const Other: General: no acute distress, well developed, alert and awake Nutritional Appearance: well nourished Orientation/consciousness: patient oriented x3 HENMT Head: Yes normocephalic and Yes atraumatic Eyes Pupils: Equal, round and reactive pupils present and Pupil accommodation reflex normal Neck Neck: Yes normal visual inspection, Yes no lymphadenopathy and Yes trachea midline Thyroid: Thyroid normal Lymphatic: no lymphadenopathy noted Chest Chest palpation & inspection: normal inspection of the chest Resp Effort & Inspection: normal respiratory effort Auscultation: clear to auscultation bilaterally Cardio Rate: regular rate Rhythm: regular rhythm Heart sounds: S1 normal heart sound present, S2 normal heart sound present, no gallops, no murmurs and no rubs Bruits: no abdominal aortic bruits and no carotid bruits GI Palpation (GI): Abdomen soft and nontender the palpation Auscultation: normal bowel sounds General: Yes no CVA tenderness Back/Spine/Pelvis Back: no CVA tenderness Skin General: warm and dry. Normal skin color. Normal skin turgor Lesions: no lesions Nails: normal Neuro General: patient oriented x3, gait normal Cranial nerves: Yes Equal, round and reactive pupils present Cognition (Neuro): normal cognition Gait exam (Neuro): Normal gait present Motor exam (neuro): 5/5 motor strength present throughout Extrem General: Yes normal to inspection, No edema and No calf tenderness Psych Appearance: grossly normal Affect: normal affect Attitude: cooperative Thought process: Normal thought process present Office Procedures Flu Questionnaire Does the patient have a severe egg allergy?: No Does the patient have severe life threatening allergies?: No Does the patient have a fever or illness today?: No Has the patient ever had Guillain-Pollock Syndrome?: No Has the patient ever had any past reaction to a flu shot?: No Immunizations Fluarix Triv [id number] (PF) 45 mcg (15 mcg x 3)/0.5 mL IM syringe Performing Provider: VICENTE Feliciano [facility] Administered by: Lexis Henry RN on 09/23/24 09:27 Dose Route Admin Location Dispensed Lot Number Expiration Date [facility] Sales Order Coordinator 0.5 mL IM Left Deltoid 0.5 mL [id number] 09/23/24 [id number] [employer] VIS Given Date VIS Provided VIS Publication Date 09/23/24 Single Vaccine 21 Eligibility Eligibility Date Funding Source Not [facility] Eligible 09/23/24 Private Results Reviewed Results Reviewed: Laboratory Tests 08/08/24 06:09 Estimat Average Glucose 114 Hemoglobin A1c % 5.6 Triglycerides 107 Cholesterol 183 LDL Cholesterol, Calc 111 H HDL Cholesterol 51 Coding Level of Care Code Est Pt Level 4 (91373) Diagnoses Cough, unspecified type R05.9 Cough type: unspecified Hypercholesterolemia E78.00 Hypertension, unspecified type I10 Hypertension type: unspecified Impaired glucose tolerance R73.02 Additional Codes PHQ-9 - 06079 - PHQ-9 Billing: Yes ([id number]) LORETO-7 Assessment Billing - LORETO-7 Assessment Tool: LORETO-7 Assessment 32390 ([id number]) Time Spent (min) 31 Assessment & Plan Assessment & Plan (1) Cough: Code(s): R05.9 - Cough, unspecified Category: Medical Qualifiers: Cough type: unspecified Qualified Code(s): R05.9 - Cough, unspecified Plan: Stable: patient was switched from lisinopril-hydrochlorothiazide 10-12.5 mg to losartan-hydrochlorothiazide 50-12.5 mg and his cough subsided Reports that sometimes he gets the urge to cough but nothing happens We will continue to monitor (2) Hypercholesterolemia: Code(s): E78.00 - Pure hypercholesterolemia, unspecified Category: Medical Plan: Discussed with patient that he has made some improvements: He is triglycerides went from 143-107, and his total cholesterol went from 217-183, his LDL when form 124- 111, HDL 51 Encouraged patient to continue with a diet low in cholesterol and activity as tolerated in order to get his LDL below 100 (3) Hypertension: Code(s): I10 - Essential (primary) hypertension Category: Medical Qualifiers: Hypertension type: unspecified Qualified Code(s): I10 - Essential (primary) hypertension Plan: Blood pressure within goal Reinforced a low-sodium diet Continue losartan-hydrochlorothiazide 50-12.5 mg (4) Impaired glucose tolerance: Code(s): R73.02 - Impaired glucose tolerance (oral) Category: Medical Plan: The patient average blood sugar was 114 in his A1c is 5.6% Reinforced a diet low in sugar/carbohydrate into increase activity as tolerated Plan Patient wants to follow up in 6 months his next appointment is an annual physical in 6 months Keep that appointment, please remember to get labs done a week before this appointment Orders: Orders Complete Blood Count Auto Diff 6 Months E78.00 - Pure hypercholesterolemia, unspecified, I10 - Essential (primary) hypertension, R73.02 - Impaired glucose tolerance (oral), Z00.00 - Encounter for general adult medical examination without abnormal findings Comprehensive [place]. Panel Fast 6 Months E78.00 - Pure hypercholesterolemia, unspecified, I10 - Essential (primary) hypertension, R73.02 - Impaired glucose tolerance (oral), Z00.00 - Encounter for general adult medical examination without abnormal findings UA CC w/rflx Micro + Cult 6 Months E78.00 - Pure hypercholesterolemia, unspecified, I10 - Essential (primary) hypertension, R73.02 - Impaired glucose tolerance (oral), Z00.00 - Encounter for general adult medical examination without abnormal findings Microalbumin, Random (w Creat) 6 Months E78.00 - Pure hypercholesterolemia, unspecified, I10 - Essential (primary) hypertension, R73.02 - Impaired glucose tolerance (oral), Z00.00 - Encounter for general adult medical examination without abnormal findings Lipid Panel 6 Months E78.00 - Pure hypercholesterolemia, unspecified, I10 - Essential (primary) hypertension, R73.02 - Impaired glucose tolerance (oral), Z00.00 - Encounter for general adult medical examination without abnormal findings Influenza [id number] Immunization Today Z23 - Encounter for immunization Vitamin D 25-OH Total 6 Months E78.00 - Pure hypercholesterolemia, unspecified, I10 - Essential (primary) hypertension, R73.02 - Impaired glucose tolerance (oral), Z00.00 - Encounter for general adult medical examination without abnormal findings Hemoglobin A1c 6 Months E78.00 - Pure hypercholesterolemia, unspecified, I10 - Essential (primary) hypertension, R73.02 - Impaired glucose tolerance (oral), Z00.00 - Encounter for general adult medical examination without abnormal findings TSH reflex Free T4 6 Months E78.00 - Pure hypercholesterolemia, unspecified, I10 - Essential (primary) hypertension, R73.02 - Impaired glucose tolerance (oral), Z00.00 - Encounter for general adult medical examination without abnor mal findings
[2024-09-23 09:01] VITALS: BP 120/64; PULSE 80; TEMP 36.2; O2SAT 95; BMI 38.2
== END 2024-09-23 09:25 | disposition home or self-care (01) ==
PROVIDERS: PCP Internal Medicine
DX: R05.9 Cough, unspecified (principal); E78.00 Pure hypercholesterolemia, unspecified; I10 Essential (primary) hypertension; R73.02 Impaired glucose tolerance (oral); Z23 Encounter for immunization

== ENCOUNTER → 2024-09-23 08:54 | Outpatient (BNVA) | payer OTHER, SELFPAY | PROVIDERS: PCP Internal Medicine | DX: R05.9 Cough, unspecified (principal); Z23 Encounter for immunization; E78.00 Pure hypercholesterolemia, unspecified; I10 Essential (primary) hypertension; R73.02 Impaired glucose tolerance (oral); Z79.899 Other long term (current) drug therapy | CPT/HCPCS: 90471; 90656; 96127 ==

== ENCOUNTER 2025-03-18 11:23 | Outpatient (AMB) | payer OTHER, SELFPAY ==
--- NOTE | 2025-03-18 11:25 | A.OFFPC_ITS ---
Vital Signs 03/18/25 11:26 03/18/25 11:58 Height 6 ft Weight 273 lb BMI 37.0 BP 140/78 H 116/60 Blood Pressure Location Lt brachial Lt brachial Position Sitting Sitting Pulse 91 Pulse Source Pulse Oximeter Pulse Oximetry (%) 96 Oxygen Delivery Method Room Air Intake Visit Reasons: ANNUAL Intake Note: Patient here for an annual physical exam Privacy Director Required: No Accompanied by: Self / Same As Patient Allergies lisinopril Adverse Reaction (Intermediate, Unverified 03/18/25 12:05) Cough Medication List - Last Reconciled 03/18/25 by Osmani Gutierrez MD cyanocobalamin (vitamin B-12) 1,000 mcg PO DAILY losartan-hydrochlorothiazide 50-12.5 mg 1 tab PO DAILY multivit with min-folic acid 120 mcg (Centrum Adult 50 Plus Fresh-Fruity) 1 tab PO DAILY Tobacco use date assessed: 09/23/24 Dental Screening Dental Screen Date: 09/23/24 HPI ANNUAL HPI Details occ dizzy PFSH Medical History Colon cancer screening HTN (hypertension) Borderline hyperlipidemia Surgical History H/O colonoscopy History of knee replacement S/P arthroscopic surgery of left knee Family History Father Cancer Lung cancer Stomach cancer Mother Breast cancer Brother Myocardial infarct Social History (Updated 03/18/25 @ 12:01 by Osmani Gutierrez MD) Housing: House Alcohol intake: current Alcohol intake frequency: a few times a week Alcohol type: beer Comment: 3x a week 4 beers, 2/ a month 5 beers Patient Tobacco Use Status: Former Tobacco user Years Smoked: stopped 22 years old e-Cigarette/Vaping Use: Never Used Second Hand Smoke Exposure: Yes service: No Current occupational status: employed Current occupation: [employer] Cognitive needs: No Hearing needs: No Vision needs: Yes Questionnaire PHQ-9 Over the last 2 weeks, how often have you been bothered by any of the following problems? 1. Little interest or pleasure in doing things: not at all 2. Feeling down, depressed, or hopeless: not at all 3. Trouble falling or staying asleep, or sleeping too much: not at all 4. Feeling tired or having little energy: not at all 5. Poor appetite or overeating: not at all 6. Feeling bad about yourself - or that you are a failure or have let yourself or your family down: not at all 7. Trouble concentrating on things, such as reading the newspaper or watching television: not at all 8. Moving or speaking so slowly that other people could have noticed. Or the opposite - being so fidgety or restless that you have been moving around a lot more than usual: not at all 9. Thoughts that you would be better off or of hurting yourself in some way: not at all Total score: 0 Depression Screening Interpretation: Negative Depression Screening Done: Yes Source: Developed by Drs. Willis Coelho, Regine Mcqueen, Marcin Kimbrough and colleagues, with an educational denita from [employer]. Thrive Questionnaire Date Thrive assessed: 03/11/25 I am a: Patient What is your living situation today?: I have a steady place to live Within the past 12 months, did the food you bought not last and you didn't have the money to get more?: Never true Within the past 12 months, did you worry whether your food would run out before you got money to buy more?: Never true Do you have trouble paying for medicines?: No Do you have trouble getting transportation to medical appointments?: No Do you have trouble paying your heating and electricity bill?: No Do you have trouble taking care of your child, family member or friend?: No Do you have trouble with day-to-day activities such as bathing, preparing meals, shopping, managing finances, etc.?: No Are you currently unemployed and looking for a job?: Yes Are you interested in more education?: No Please select the resources that you would like help with: None Currently or been in a relationship where the following occur: No concerns reported THRIVE Score: 0 AUDIT C Alcohol Use Questionnaire (AUDIT-C) 1. How often do you have a drink containing alcohol?: 2-4 times a month 2. How many drinks containing alcohol do you have on a typical day when you are drinking?: 1 or 2 3. How often do you have six or more drinks on one occasion?: Never Total Score: 2 LORETO-7 AMB Questionnaire LORETO-7 Date LORETO - 7 assessed: 03/18/25 Feeling nervous, anxious, or on edge: 0 = Not at all Not being able to stop or control worryin = Not at all Worrying too much about different things: 0 = Not at all Trouble relaxin = Not at all Being so restless that it is hard to sit still: 0 = Not at all Becoming easily annoyed or irritable: 0 = Not at all Feeling afraid as if something awful might happen: 0 = Not at all Total LORETO-7 score (0-4 normal; 5-9 mild; 10-14 moderate; 15-21 severe): 0 Source: Developed by Drs. Willis Coelho, Regine Mcqueen, Marcin Kimbrough and colleagues, with an educational denita from [employer]. Review of Systems Const Denies poor appetite and Denies weakness Eyes Denies no additional complaints ENT Reports Normal hearing present, Denies dizziness, Denies nasal congestion, Denies tinnitus and Denies sore throat Card Denies chest pain, Denies syncope, Denies rapid heart rate and Denies dyspnea Resp Denies cough and Denies dyspnea GI Denies change in stool character, Reports constipation, Denies diarrhea, Denies nausea and Denies vomiting Denies dysuria and Denies urinary frequency Neuro Reports Normal hearing present, Denies confusion, Denies dizziness, Denies syncope and Denies weakness Psych Denies confusion Physical exam (Primary Care) Vital Signs: Last Vital Signs Pulse 91 03/18/25 11:26 BP 116/60 03/18/25 11:58 Pulse Ox 96 03/18/25 11:26 Oxygen Delivery Method Room Air 03/18/25 11:26 BMI result Body Mass Index 37.0 Tobacco/Smoking Status: Tobacco use Status Tobacco use date assessed 09/23/24 03/18/25 11:30 Patient Tobacco Use Status Former Tobacco user 03/18/25 12:01 e-Cigarette/Vaping Use Never Used 03/18/25 12:01 PHQ-9: PHQ-9 Score PHQ-9: Total score 0 03/18/25 11:55 Depression Screening Interpretation: Negative Thrive Assessment: Date of Thrive Assessment Date Thrive assessed 03/11/25 03/18/25 11:30 Currently or been in a relationship where the following occur: No concerns reported Const General: No confusion Orientation/consciousness: No confusion HENMT Head: Yes normocephalic Ears: external ears normal and TM's normal bilaterally Face and sinus: Yes normal facial exam Mouth: moist mucous membranes Throat: Yes tonsils normal Eyes Conjunctivae: conjunctivae normal Pupils: Equal, round and reactive pupils present and Pupil accommodation reflex normal Direct Ophthalmoscopy: normal light reflex Neck Neck: No lymphadenopathy Thyroid: Thyroid normal Chest Chest palpation & inspection: normal inspection of the chest Resp Effort & Inspection: normal respiratory effort and no audible wheezes Auscultation: clear to auscultation bilaterally, no crackles, no wheezes and lung sounds not diminished Cardio Rate: regular rate Rhythm: regular rhythm Peripheral pulses: radial pulses present and dorsalis pedis present GI Other: guaiac negative , prostate N Palpation (GI): no masses Auscultation: normal bowel sounds and normoactive bowel sounds Skin General skin exam: no rashes or lesions noted Rashes: no rashes Neuro General: No confusion Cranial nerves: Yes Equal, round and reactive pupils present and Yes Normal hearing present Cognition (Neuro): normal cognition Gait exam (Neuro): Normal gait present Motor exam (neuro): 5/5 motor strength present throughout Deep tendon reflexes (DTR's): Right brachioradialis reflex intensity grade: 2+, Left brachioradialis reflex intensity grade: 2+, Right patellar reflex intensity grade: 2+ and Left patellar reflex intensity grade: 2+ Extrem General: No edema Coding Level of Care Code Est Pt Prev Care 40-64y(89059) Diagnoses Annual physical exam Z00.00 Hypertension, unspecified type I10 Hypertension type: unspecified Hypercholesterolemia E78.00 Peripheral vascular disease I73.9 Impaired glucose tolerance R73.02 Assessment & Plan Assessment & Plan (1) Annual physical exam: Code(s): Z00.00 - Encounter for general adult medical examination without abnormal find ings Category: Medical Plan: Patient is advised to eat healthy, keep well hydrated, keep active and have adequate sleep. is plan (2) Hypertension: Code(s): I10 - Essential (primary) hypertension Category: Medical Qualifiers: Hypertension type: unspecified Qualified Code(s): I10 - Essential ( primary) hypertension Plan: Continue with blood pressure medication. Decrease salt intake and exercise on losartan hydrochlorothiazide 50/12.5 mg once a day (3) Hypercholesterolemia: Code(s): E78.00 - Pure hypercholesterolemia, unspecified Category: Medical Plan: Avoid fried foods, chicken skin, eggs, butter margarine, pastries and meat. Be it pork or beef they have a lot of cholesterol (4) Peripheral vascular disease: Comment: Left leg swelling 1+ September 2023 Code(s): I73.9 - Peripheral vascular disease, unspecified Category: Medical Plan: When sitting down elevate the legs, exercise, and support stockings (5) Impaired glucose tolerance: Code(s): R73.02 - Impaired glucose tolerance (oral) Category: Medical Plan: Decrease the amount of carbohydrate intake, pasta, bread, rice and potatoes are all sugar and that is aside from all the sweet stuff, remember that fruits are good but they are Sweet also. Plan History of Present Illness The patient is a 64-year-old male presenting for an annual physical examination. He has a history of obesity with a recent weight loss of 9 pounds. The patient has impaired glucose tolerance, hypertension, hypercholesterolemia, and dedrick pheral vascular disease. The patient has a history of tubular adenoma, with the last colonoscopy performed in October 2023. His last blood work in September 2023 showed normal blood count and electrolytes, but mildly elevated blood sugar, which requires follow-up. Cholesterol levels were noted to be good in August. The patient is on losartan hydrochlorothiazide 50/12.5 mg once daily for hyperte nsion. He reports experiencing a dry cough, which he associates with his medication. The patient has not had an eye examination recently but reports good vision, using glasses primarily for reading. 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 He has adjusted his diet to accommodate his reduced activity level, aiming to manage his weight. Health Maintenance - Colonoscopy performed in October 2023 - Blood work requested for follow-up on glucose levels - Shingles vaccination discussed, available at pharmacy - Tetanus vaccination up to date Social History - Employment: Transitioned from construction to desk job, resulting in decreased physical activity - Exercise: Reduced physical activity due to job change - Nutrition: Adjusted diet to manage weight with reduced activity Review of Systems - Respiratory: Reports dry cough associated with medication - Ophthalmologic: Denies vision problems, uses glasses for reading Physical Exam General: Cooperative, healthy appearing, comfortable, no acute distress and well developed Orientation: Patient oriented x3 Limitations: No limitations Head: Normal to inspection Ears: Hearing grossly normal bilaterally, few ear wax noted Nose: Normal external nose present Face and sinus: Normal facial exam Eyes: Appearance normal, both eyes and all related structures, vision good, uses glasses for reading Neck: Normal visual inspection and Yes full ROM Respiratory: Normal respiratory effort and able to speak in complete sentences. Clear to auscultation bilaterally Cardiovascular: Regular rate and rhythm. Normal S1 and S2 GI: Normal to inspection. Soft to palpation and nontender, stomach noisy Skin: No rashes or lesions noted Neuro: Patient oriented x3 Extremities: Normal to inspection Results - Labs: Normal blood count and electrolytes, mildly elevated blood sugar (September 2023) - Labs: Cholesterol levels good (August 2023) Plan The patient will continue with losartan hydrochlorothiazide 50/12.5 mg once daily for hypertension management. A follow-up blood work is requested to monitor glucose levels, given the previous mildly elevated results. The patient is advised to maintain a balanced diet and regular physical activity to manage weight and overall health. The patient is informed about the availability of the shingles vaccine at the pharmacy and is encouraged to consider it for preventative care. The patient is up to date with the tetanus vaccination, and no additional vaccinations are required at this time. Patient was informed and verbally consented to the use of an ambient scribe for clinic note documentation during this visit. Discussion Notes During the visit, I discussed with the patient the importance of managing hypertension with losartan hydrochlorothiazide and the need for follow-up blood work to monitor glucose levels. We talked about the benefits of maintaining a balanced diet and regular exercise to support weight management and overall health. I informed the patient about the shingles vaccine available at the pharmacy and encouraged consideration for preventative care. The patient is up to date with the tetanus vaccination, and no additional vaccinations are required at this time. Patient Instructions - Continue taking losartan hydrochlorothiazide 50/12.5 mg daily. - Schedule follow-up blood work to check glucose levels. - Maintain a balanced diet and regular exercise routine. - Consider getting the shingles vaccine at the pharmacy. - No additional vaccinations needed at this time. Orders: Orders Comprehensive Met. Panel Today E78.00 - Pure hypercholesterolemia, unspecified Free T4 (Free Thyroxine) Today E78.00 - Pure hypercholesterolemia, unspecified Lipid Panel Today E78.00 - Pure hypercholesterolemia, unspecified Vitamin B12 and Folate Today E78.00 - Pure hypercholesterolemia, unspecified Prostate Specific Antigen Scr Today E78.00 - Pure hypercholesterolemia, unspecified Complete Blood Count Auto Diff Today E78.00 - Pure hypercholesterolemia, unspecified Hemoglobin A1c Today E78.00 - Pure hypercholesterolemia, unspecified Thyroid Stimulating Hormone Today E78.00 - Pure hypercholesterolemia, unspecified
[2025-03-18 11:26] VITALS: BP 140/78; PULSE 91; O2SAT 96; BMI 37.0
[2025-03-18 11:58] VITALS: BP 116/60
== END 2025-03-18 12:21 | disposition home or self-care (01) ==
LOC: HO.HMCH 11:24
PROVIDERS: PCP Internal Medicine; Visit Provider Internal Medicine
DX: Z00.00 Encounter for general adult medical examination without abnormal findings (principal); I10 Essential (primary) hypertension; E78.00 Pure hypercholesterolemia, unspecified; I73.9 Peripheral vascular disease, unspecified; R73.02 Impaired glucose tolerance (oral)